=== PATIENT | male | born 1950 | race Caucasian/White ===

== ENCOUNTER 2017-03-29 15:49 | Inpatient (IN) | payer MEDICARE, OTHER ==
[~2017-03-29] VITALS: Ht 182.9 cm; Wt 71.9 kg
[~2017-03-29 15:49] MED LIST: ASPI-515 PO; IBUP200T64 PO; LANS15CA60 PO; MULT-115 PO
[2017-03-29] MEDS ORDERED: SODIUM CHLORIDE FLUSH 10ML SYR IVF ONE (16:00)
[2017-03-29] MEDS ORDERED: SODIUM CHLORIDE 0.9% 1,000ML IVBOLUS ONE (16:00)
[2017-03-29] MEDS ORDERED: PLEASE ENTER HEIGHT AND WEIGHT MC SCH (16:00)
[2017-03-29] MEDS ORDERED: MAGNESIUM SULFATE 2 GM, THIAMINE 100 MG, FOLIC ACID 1 MG, MVI ADULT 10 ML in SODIUM CHL... IV ONE (16:00)
[2017-03-29 16:17] LABS: MEAN CORPUSCULAR HEMOGLOBIN 37.7 pg (27.5-34.5); MEAN CORPUSCULAR HGB CONC 33.7 g/dL (33.2-36.2); MEAN CORPUSCULAR VOLUME 111.9 fL (81-97); MEAN PLATELET VOLUME 8.3 fL (7.4-10.4); PLATELET COUNT 161 x10^3/uL (130-400); RED CELL DISTRIBUTION WIDTH 15.7 % (9.4-14.8)
[2017-03-29 16:22] LABS: INTERNATIONAL NORMALIZED RATIO 1.01 (0.93-1.1); PROTHROMBIN TIME 10.4 Seconds (9.6-11.5)
[2017-03-29 16:27] LABS: ALANINE AMINOTRANSFERASE 87 U/L (12-78); ALBUMIN 3.7 g/dL (3.4-5.0); ANION GAP 14 mmol/L (5-15); CALCIUM 8.2 mg/dL (8.5-10.1); CHLORIDE 104 mmol/L (98-107); CREATININE 0.94 mg/dL (0.7-1.3)
[2017-03-29 16:28] LABS: ALKALINE PHOSPHATASE 116 U/L (45-117); TOTAL PROTEIN 6.7 g/dL (6.4-8.2)
[2017-03-29] MEDS ORDERED: LORazepam 2 MG/ML, 1ML ONE (16:28)
[2017-03-29] MEDS: LORazepam 2 MG/ML, 1ML IVPush PRN ×2 (16:33→20:19)
[2017-03-29 16:36] LABS: TROPONIN I 0.043 ng/mL (0.000-0.045)
[2017-03-29 16:39] LABS: BASOPHILS # (AUTO) 0.01 x10^3/uL (0-0.1); BASOPHILS % (AUTO) 0 % (0-1); EOSINOPHILS # (AUTO) 0.03 x10^3/uL (0-0.4); EOSINOPHILS % (AUTO) 1 % (1-7); LYMPHOCYTES # (AUTO) 2.02 x10^3/uL (1-3.4); LYMPHOCYTES % (AUTO) 37 % (22-44); MD MORPH REVIEW ONLY; MONOCYTES # (AUTO) 0.34 x10^3/uL (0.2-0.8); MONOCYTES % (AUTO) 6 % (2-9); NEUTROPHILS # (AUTO) 3.11 x10^3/uL (1.8-6.8); NEUTROPHILS % (AUTO) 56 % (42-75)
[2017-03-29 16:40] LABS: <PLATELET ESTIMATE> ADEQUATE; <PLT MORPHOLOGY> NORMAL PLT MORPH
[2017-03-29 16:45] LABS: ACETONE, SERUM Negative (Negative)
[2017-03-29] MEDS ORDERED: DOCUSATE 100 MG CAPSULE PO PRN (18:30)
[2017-03-29] MEDS ORDERED: ONDANSETRON ODT 4 MG PO PRN (18:30)
[2017-03-29] MEDS ORDERED: ALUMINUM/MAG/SIMETHICONE 30 ML UDC PO PRN (18:30)
[2017-03-29] MEDS ORDERED: MAGNESIUM SULFATE PMX 2GM/50ML 50 ML IV ONE (19:00)
[2017-03-29] MEDS ORDERED: ENOXAPARIN 40 MG/0.4 ML ONE (19:30)
[2017-03-29 20:21] VITALS: BP 122/75
[2017-03-29 20:30] VITALS: BP 122/75
[2017-03-29] MEDS: SODIUM CHLORIDE 0.9% 1,000 ML IV SCH (21:13)
[2017-03-29] MEDS: ENOXAPARIN 40 MG/0.4 ML SQ SCH (21:19)
[2017-03-29 21:35] LABS: TROPONIN I 0.267 ng/mL (0.000-0.045)
[2017-03-30] MEDS: LORazepam 2 MG/ML, 1ML IVPush PRN (01:12)
[2017-03-30 01:13] VITALS: BP 125/78
[2017-03-30 05:44] LABS: CHLORIDE 108 mmol/L (98-107)
[2017-03-30 06:13] LABS: MEAN CORPUSCULAR HEMOGLOBIN 38.4 pg (27.5-34.5); MEAN CORPUSCULAR HGB CONC 34.4 g/dL (33.2-36.2); MEAN CORPUSCULAR VOLUME 111.7 fL (81-97); MEAN PLATELET VOLUME 8.7 fL (7.4-10.4); PLATELET COUNT 110 x10^3/uL (130-400); RED BLOOD COUNT 2.58 x10^6/uL (4.38-5.82); RED CELL DISTRIBUTION WIDTH 16.3 % (9.4-14.8)
[2017-03-30 06:21] LABS: ANION GAP 9 mmol/L (5-15); CREATININE 0.63 mg/dL (0.7-1.3); FREE T4 (FREE THYROXINE) 1.78 ng/dL (0.76-1.46); TROPONIN I 0.073 ng/mL (0.000-0.045)
[2017-03-30 07:04] LABS: BASOPHILS # (AUTO) 0.02 x10^3/uL (0-0.1); BASOPHILS % (AUTO) 1 % (0-1); EOSINOPHILS # (AUTO) 0.03 x10^3/uL (0-0.4); EOSINOPHILS % (AUTO) 1 % (1-7); LYMPHOCYTES # (AUTO) 0.98 x10^3/uL (1-3.4); LYMPHOCYTES % (AUTO) 38 % (22-44); MD MORPH REVIEW ONLY; MONOCYTES # (AUTO) 0.33 x10^3/uL (0.2-0.8); MONOCYTES % (AUTO) 13 % (2-9); NEUTROPHILS # (AUTO) 1.21 x10^3/uL (1.8-6.8); NEUTROPHILS % (AUTO) 47 % (42-75)
[2017-03-30 07:05] VITALS: BP 151/84
[2017-03-30 07:07] LABS: <PLATELET ESTIMATE> ADEQUATE; ANISOCYTOSIS 1+
[2017-03-30 07:08] LABS: <PLT MORPHOLOGY> NORMAL PLT MORPH
[2017-03-30] MEDS ORDERED: THIAMINE 100MG TABLET PO ONE (09:00)
[2017-03-30] MEDS: SODIUM CHLORIDE 0.9% 1,000 ML IV SCH ×2 (09:00→17:31)
[2017-03-30] MEDS: MULTIVITAMIN 1 TABLET PO SCH (09:24)
[2017-03-30] MEDS: FOLIC ACID 1 MG TABLET PO SCH (09:24)
[2017-03-30] MEDS: ASPIRIN 81 MG TABLET EC PO SCH (09:24)
[2017-03-30] MEDS: PANTOPROZOLE 40MG TABLET PO SCH (09:24)
[2017-03-30] MEDS: POTASSIUM CHLORIDE 20 MEQ TAB.ER.PRT PO SCH ×2 (09:25→17:32)
[2017-03-30 10:56] LABS: FOLATE LEVEL > 20.0 ng/mL (3.1-17.5)
[2017-03-30 12:20] VITALS: BP 151/83
[2017-03-30] MEDS ORDERED: OMNIPAQUE 350 MG/ML, 100ML BOTTLE ONE (15:04)
[2017-03-30] MEDS: ENOXAPARIN 40 MG/0.4 ML SQ SCH (17:32)
[2017-03-30 20:00] VITALS: BP 150/85
[2017-03-31 00:47] LABS: OCCULT BLOOD NEGATIVE (NEGATIVE)
[2017-03-31] MEDS: SODIUM CHLORIDE 0.9% 1,000 ML IV SCH ×3 (01:00→20:55)
[2017-03-31 03:23] VITALS: BP 160/93
[2017-03-31 04:58] LABS: MEAN CORPUSCULAR HGB CONC 34.8 g/dL (33.2-36.2); MEAN PLATELET VOLUME 8.6 fL (7.4-10.4); PLATELET COUNT 112 x10^3/uL (130-400); RED BLOOD COUNT 2.58 x10^6/uL (4.38-5.82); RED CELL DISTRIBUTION WIDTH 15.7 % (9.4-14.8)
[2017-03-31 05:08] LABS: CHLORIDE 109 mmol/L (98-107)
[2017-03-31 05:12] LABS: ALANINE AMINOTRANSFERASE 68 U/L (12-78); ALBUMIN 3.2 g/dL (3.4-5.0); ALKALINE PHOSPHATASE 102 U/L (45-117); ANION GAP 8 mmol/L (5-15); BILIRUBIN,TOTAL 1.6 mg/dL (0.2-1.0); CREATININE 0.59 mg/dL (0.7-1.3); TOTAL PROTEIN 5.9 g/dL (6.4-8.2)
[2017-03-31 06:28] LABS: MD YES
[2017-03-31 06:33] LABS: BAND#(MANUAL) 0.18 x10^3/uL; BANDS%(MANUAL) 4 % (0-7); LYMPH#(MANUAL) 1.04 x10^3/uL (1-3.4); LYMPHS% (MANUAL) 23 % (22-44); MONOS#(MANUAL) 0.09 x10^3/uL (0.3-2.7); MONOS% (MANUAL) 2 % (2-9); SEGS% (MANUAL) 71 % (42-75)
[2017-03-31 06:34] LABS: ANISOCYTOSIS 1+; HYPOCHROMIA 1+
[2017-03-31 06:35] LABS: <PLATELET ESTIMATE> DECREASED; <PLT MORPHOLOGY> NORMAL PLT MORPH
[2017-03-31 06:42] VITALS: BP 151/86
[2017-03-31] MEDS: LORazepam 2 MG/ML, 1ML IVPush PRN ×3 (08:25→19:42)
[2017-03-31] MEDS ORDERED: MAGNESIUM SULFATE PMX 4GM/100M 100 ML IV ONE (09:30)
[2017-03-31] MEDS: THIAMINE 100MG TABLET PO SCH (11:15)
[2017-03-31] MEDS: MULTIVITAMIN 1 TABLET PO SCH (11:15)
[2017-03-31] MEDS: NEUTRA PHOS K 250 MG TABLET PO SCH ×3 (11:15→20:55)
[2017-03-31] MEDS: PANTOPROZOLE 40MG TABLET PO SCH (11:15)
[2017-03-31] MEDS: ASPIRIN 81 MG TABLET EC PO SCH (11:15)
[2017-03-31] MEDS: FOLIC ACID 1 MG TABLET PO SCH (11:15)
[2017-03-31 12:03] VITALS: BP 138/85
[2017-03-31] MEDS: ENOXAPARIN 40 MG/0.4 ML SQ SCH (17:27)
[2017-03-31 19:40] VITALS: BP 150/92
[2017-04-01] MEDS: LORazepam 2 MG/ML, 1ML IVPush PRN ×6 (01:25→20:40)
[2017-04-01 02:37] VITALS: BP 147/91
[2017-04-01] MEDS: SODIUM CHLORIDE 0.9% 1,000 ML IV SCH ×3 (05:21→20:40)
[2017-04-01 07:17] LABS: MEAN CORPUSCULAR HEMOGLOBIN 37.8 pg (27.5-34.5); MEAN CORPUSCULAR HGB CONC 33.3 g/dL (33.2-36.2); MEAN CORPUSCULAR VOLUME 113.6 fL (81-97); MEAN PLATELET VOLUME 8.1 fL (7.4-10.4); PLATELET COUNT 109 x10^3/uL (130-400); RED BLOOD COUNT 2.58 x10^6/uL (4.38-5.82)
[2017-04-01 07:30] LABS: RED CELL DISTRIBUTION WIDTH 16.2 % (9.4-14.8)
[2017-04-01 07:31] LABS: BASOPHILS # (AUTO) 0.02 x10^3/uL (0-0.1); BASOPHILS % (AUTO) 0 % (0-1); EOSINOPHILS % (AUTO) 0 % (1-7); LYMPHOCYTES # (AUTO) 0.62 x10^3/uL (1-3.4); LYMPHOCYTES % (AUTO) 9 % (22-44); MD SCAN; MONOCYTES # (AUTO) 0.87 x10^3/uL (0.2-0.8); MONOCYTES % (AUTO) 13 % (2-9); NEUTROPHILS % (AUTO) 77 % (42-75)
[2017-04-01 07:40] LABS: ANION GAP 12 mmol/L (5-15); CHLORIDE 109 mmol/L (98-107); CREATININE 0.55 mg/dL (0.7-1.3)
[2017-04-01 08:09] VITALS: BP 142/91
[2017-04-01] MEDS: THIAMINE 100MG TABLET PO SCH (09:00)
[2017-04-01] MEDS: ASPIRIN 81 MG TABLET EC PO SCH (09:00)
[2017-04-01] MEDS: MULTIVITAMIN 1 TABLET PO SCH (09:00)
[2017-04-01] MEDS: FOLIC ACID 1 MG TABLET PO SCH (09:00)
[2017-04-01] MEDS: PANTOPROZOLE 40MG TABLET PO SCH (09:00)
[2017-04-01] MEDS: NICOTINE 21 MG/24 HR PATCH.TD24 TD SCH (12:05)
[2017-04-01 13:35] VITALS: BP 157/94
[2017-04-01] MEDS: ENOXAPARIN 40 MG/0.4 ML SQ SCH (17:10)
[2017-04-01 18:31] VITALS: BP 160/95
[2017-04-02] MEDS: LORazepam 2 MG/ML, 1ML IVPush PRN ×4 (00:35→09:36)
[2017-04-02 03:25] VITALS: BP 148/81
[2017-04-02] MEDS: SODIUM CHLORIDE 0.9% 1,000 ML IV SCH (04:35)
[2017-04-02 05:21] LABS: MEAN CORPUSCULAR HEMOGLOBIN 38.1 pg (27.5-34.5); MEAN CORPUSCULAR HGB CONC 33.4 g/dL (33.2-36.2); MEAN PLATELET VOLUME 8.4 fL (7.4-10.4); PLATELET COUNT 117 x10^3/uL (130-400); RED BLOOD COUNT 2.67 x10^6/uL (4.38-5.82); RED CELL DISTRIBUTION WIDTH 16.6 % (9.4-14.8)
[2017-04-02 05:35] LABS: ALBUMIN 2.8 g/dL (3.4-5.0); ANION GAP 12 mmol/L (5-15); CALCIUM 8.5 mg/dL (8.5-10.1); CHLORIDE 110 mmol/L (98-107)
[2017-04-02 05:38] LABS: ALANINE AMINOTRANSFERASE 43 U/L (12-78); ALKALINE PHOSPHATASE 83 U/L (45-117); BILIRUBIN,TOTAL 2.2 mg/dL (0.2-1.0); CREATININE 0.59 mg/dL (0.7-1.3); TOTAL PROTEIN 6.3 g/dL (6.4-8.2)
[2017-04-02 07:02] LABS: BASOPHILS # (AUTO) 0.01 x10^3/uL (0-0.1); BASOPHILS % (AUTO) 0 % (0-1); EOSINOPHILS # (AUTO) 0.01 x10^3/uL (0-0.4); EOSINOPHILS % (AUTO) 0 % (1-7); LYMPHOCYTES # (AUTO) 0.48 x10^3/uL (1-3.4); LYMPHOCYTES % (AUTO) 7 % (22-44); MD SCAN; MONOCYTES # (AUTO) 1.03 x10^3/uL (0.2-0.8); MONOCYTES % (AUTO) 14 % (2-9); NEUTROPHILS # (AUTO) 5.73 x10^3/uL (1.8-6.8); NEUTROPHILS % (AUTO) 79 % (42-75)
[2017-04-02 07:55] VITALS: BP 169/94
[2017-04-02] MEDS ORDERED: SODIUM PHOSPHATE 10 MMOL in SODIUM CHLORIDE 0.9% 500 ML IV ONE (08:00)
[2017-04-02] MEDS ORDERED: D5%-0.9% NACL 1,000 ML IV SCH (08:00)
[2017-04-02] MEDS: FOLIC ACID 1 MG TABLET PO SCH (09:00)
[2017-04-02] MEDS: ASPIRIN 81 MG TABLET EC PO SCH (09:00)
[2017-04-02] MEDS: MULTIVITAMIN 1 TABLET PO SCH (09:00)
[2017-04-02] MEDS: PANTOPROZOLE 40MG TABLET PO SCH (09:00)
[2017-04-02] MEDS: THIAMINE 100MG TABLET PO SCH (09:00)
[2017-04-02] MEDS: NICOTINE 21 MG/24 HR PATCH.TD24 TD SCH (09:37)
[2017-04-02] MEDS ORDERED: FUROSEMIDE 40 MG/4 ML IV ONE ×3 (10:00→22:30)
[2017-04-02] MEDS: LORazepam 2 MG/ML, 1ML IV PRN ×3 (12:18→20:15)
[2017-04-02] MEDS ORDERED: LORazepam 1MG TABLET PO PRN ×4 (12:30)
[2017-04-02] MEDS ORDERED: LORazepam 2 MG/ML, 1ML IV PRN ×3 (12:30)
[2017-04-02] MEDS ORDERED: LORazepam 0.5MG TABLET PO PRN (12:30)
[2017-04-02 14:15] VITALS: BP 149/88
[2017-04-02] MEDS: ENOXAPARIN 40 MG/0.4 ML SQ SCH (17:44)
[2017-04-02] MEDS: ATORVASTATIN 20 MG TABLET PO SCH (20:10)
[2017-04-02 20:29] VITALS: BP 138/76
[2017-04-02] MEDS ORDERED: FUROSEMIDE 40 MG/4 ML ONE (22:29)
[2017-04-02 23:12] LABS: ALANINE AMINOTRANSFERASE 39 U/L (12-78); ALBUMIN 2.7 g/dL (3.4-5.0); ANION GAP 14 mmol/L (5-15); CALCIUM 8.6 mg/dL (8.5-10.1); CHLORIDE 107 mmol/L (98-107); CREATININE 0.54 mg/dL (0.7-1.3)
[2017-04-02 23:14] LABS: ALKALINE PHOSPHATASE 75 U/L (45-117); BILIRUBIN,TOTAL 1.7 mg/dL (0.2-1.0); TOTAL PROTEIN 6.4 g/dL (6.4-8.2)
[2017-04-02 23:43] LABS: MEAN CORPUSCULAR HGB CONC 33.4 g/dL (33.2-36.2); MEAN CORPUSCULAR VOLUME 113.7 fL (81-97); MEAN PLATELET VOLUME 8.9 fL (7.4-10.4); PLATELET COUNT 162 x10^3/uL (130-400); RED BLOOD COUNT 2.87 x10^6/uL (4.38-5.82); RED CELL DISTRIBUTION WIDTH 16.6 % (9.4-14.8)
[2017-04-02 23:58] LABS: BASOPHILS # (AUTO) 0.01 x10^3/uL (0-0.1); BASOPHILS % (AUTO) 0 % (0-1); EOSINOPHILS % (AUTO) 0 % (1-7); LYMPHOCYTES % (AUTO) 6 % (22-44); MD SCAN; MONOCYTES # (AUTO) 1.27 x10^3/uL (0.2-0.8); MONOCYTES % (AUTO) 16 % (2-9); NEUTROPHILS % (AUTO) 78 % (42-75)
[2017-04-03] MEDS ORDERED: LIDOCAINE-MPF 1%, 2ML ENDO PRN
[2017-04-03] MEDS ORDERED: PHARMACY MAY ADJ FOR RENAL FX MC SCH
[2017-04-03] MEDS ORDERED: ETOMIDATE 20 MG/10 ML IVPush ONE
[2017-04-03] MEDS ORDERED: MIDAZOLAM 1 MG/ML, 5ML IVPush ONE
[2017-04-03] MEDS: AMPICILLIN/SULBACTAM 3 GM in SODIUM CHLORIDE 0.9% 100 ML IV SCH ×5 (00:11→23:47)
[2017-04-03] MEDS: PROPOFOL 100 ML IV PRN ×2 (00:12→04:01)
[2017-04-03] MEDS ORDERED: SODIUM CHLORIDE 0.9% 1,000ML IVBOLUS ONE ×2 (00:30→09:30)
[2017-04-03] MEDS: LORazepam 2 MG/ML, 1ML IV PRN (03:50)
[2017-04-03 04:00] VITALS: BP 110/70
[2017-04-03 04:51] LABS: MEAN CORPUSCULAR HEMOGLOBIN 38.4 pg (27.5-34.5); MEAN CORPUSCULAR HGB CONC 33.9 g/dL (33.2-36.2); MEAN CORPUSCULAR VOLUME 113.2 fL (81-97); MEAN PLATELET VOLUME 8.6 fL (7.4-10.4); PLATELET COUNT 138 x10^3/uL (130-400); RED BLOOD COUNT 2.63 x10^6/uL (4.38-5.82); RED CELL DISTRIBUTION WIDTH 15.8 % (9.4-14.8)
[2017-04-03 04:57] LABS: ALANINE AMINOTRANSFERASE 35 U/L (12-78); ALBUMIN 2.3 g/dL (3.4-5.0); ANION GAP 11 mmol/L (5-15); CALCIUM 8.3 mg/dL (8.5-10.1); CHLORIDE 110 mmol/L (98-107); CREATININE 0.55 mg/dL (0.7-1.3)
[2017-04-03 05:03] LABS: ALKALINE PHOSPHATASE 65 U/L (45-117); BILIRUBIN,TOTAL 1.7 mg/dL (0.2-1.0); CHOL/HDL RATIO 5.1; CHOLESTEROL, TOTAL 112 mg/dL (140-239); HDL CHOL % 20 % (26-37); HDL CHOLESTEROL (DIRECT) 22 mg/dL (40-60); LDL CHOLESTEROL,CALCULATED 58 mg/dL (54-169); LDL/HDL RATIO 2.6 (0.5-3.0); TOTAL PROTEIN 5.6 g/dL (6.4-8.2); TRIGLYCERIDES 158 mg/dL (50-200); VLDL CHOLESTEROL 32 mg/dL (0-25)
[2017-04-03] MEDS ORDERED: ALBUTEROL/IPRATROPIUM 2.5MG/0.5MG, 3 ML NPPB PRN (05:30)
[2017-04-03] MEDS: ACETAMINOPHEN 650 MG/20.3 ML UDC NG PRN ×2 (05:40→16:56)
[2017-04-03] MEDS: MIDAZOLAM HCL 25 MG in SODIUM CHLORIDE 0.9% 245 ML IV PRN ×5 (05:41→23:47)
[2017-04-03 05:44] LABS: BASOPHILS # (AUTO) 0.01 x10^3/uL (0-0.1); BASOPHILS % (AUTO) 0 % (0-1); EOSINOPHILS % (AUTO) 0 % (1-7); LYMPHOCYTES % (AUTO) 10 % (22-44); MD SCAN; MONOCYTES # (AUTO) 0.65 x10^3/uL (0.2-0.8); MONOCYTES % (AUTO) 16 % (2-9); NEUTROPHILS # (AUTO) 3.03 x10^3/uL (1.8-6.8); NEUTROPHILS % (AUTO) 74 % (42-75)
[2017-04-03] MEDS ORDERED: MAGNESIUM SULFATE PMX 4GM/100M 100 ML IV ONE (08:00)
[2017-04-03] MEDS: ALBUTEROL/IPRATROPIUM 2.5MG/0.5MG, 3 ML NPPB SCH ×5 (08:03→22:35)
[2017-04-03] MEDS: THIAMINE 100MG TABLET PO SCH (09:00)
[2017-04-03] MEDS: ASPIRIN 81 MG TABLET EC PO SCH (09:00)
[2017-04-03] MEDS: FOLIC ACID 1 MG TABLET PO SCH (09:00)
[2017-04-03] MEDS: MULTIVITAMIN 1 TABLET PO SCH (09:00)
[2017-04-03] MEDS: PANTOPROZOLE 40MG TABLET PO SCH (09:00)
[2017-04-03] MEDS: NICOTINE 21 MG/24 HR PATCH.TD24 TD SCH (10:09)
[2017-04-03] MEDS: DIAZEPAM 5 MG/ML, 10ML VIAL IV SCH ×3 (10:09→20:32)
[2017-04-03] MEDS ORDERED: ETOMIDATE 20 MG/10 ML ONE (11:52)
[2017-04-03] MEDS ORDERED: PROPOFOL 10 MG/ML, 100ML IV ONE (11:52)
[2017-04-03] MEDS ORDERED: MIDAZOLAM 1 MG/ML, 5ML ONE (11:52)
[2017-04-03] MEDS ORDERED: SODIUM CHLORIDE 0.9%, 500ML IVBOLUS ONE (13:00)
[2017-04-03] MEDS ORDERED: NOREPINEPHRINE 4 MG in SODIUM CHLORIDE 0.9% 246 ML IV PRN (13:00)
[2017-04-03] MEDS: ENOXAPARIN 40 MG/0.4 ML SQ SCH (17:38)
[2017-04-03] MEDS: ATORVASTATIN 20 MG TABLET PO SCH (20:32)
[2017-04-04] MEDS: DIAZEPAM 5 MG/ML, 10ML VIAL IV SCH ×4 (02:56→22:29)
[2017-04-04] MEDS: MIDAZOLAM HCL 25 MG in SODIUM CHLORIDE 0.9% 245 ML IV PRN ×2 (02:56→05:59)
[2017-04-04] MEDS: ALBUTEROL/IPRATROPIUM 2.5MG/0.5MG, 3 ML NPPB SCH ×6 (03:13→22:35)
[2017-04-04] MEDS: ACETAMINOPHEN 650 MG/20.3 ML UDC NG PRN (03:43)
[2017-04-04 04:00] VITALS: BP 102/62
[2017-04-04 04:38] LABS: MEAN CORPUSCULAR HGB CONC 33.6 g/dL (33.2-36.2); MEAN CORPUSCULAR VOLUME 113.1 fL (81-97); MEAN PLATELET VOLUME 8.8 fL (7.4-10.4); PLATELET COUNT 146 x10^3/uL (130-400); RED BLOOD COUNT 2.51 x10^6/uL (4.38-5.82)
[2017-04-04 04:42] LABS: BASOPHILS # (AUTO) 0.01 x10^3/uL (0-0.1); BASOPHILS % (AUTO) 0 % (0-1); EOSINOPHILS # (AUTO) 0.09 x10^3/uL (0-0.4); EOSINOPHILS % (AUTO) 2 % (1-7); LYMPHOCYTES # (AUTO) 0.56 x10^3/uL (1-3.4); LYMPHOCYTES % (AUTO) 13 % (22-44); MD NO; MONOCYTES # (AUTO) 0.61 x10^3/uL (0.2-0.8); MONOCYTES % (AUTO) 14 % (2-9); NEUTROPHILS # (AUTO) 3.14 x10^3/uL (1.8-6.8); NEUTROPHILS % (AUTO) 71 % (42-75)
[2017-04-04] MEDS: AMPICILLIN/SULBACTAM 3 GM in SODIUM CHLORIDE 0.9% 100 ML IV SCH ×3 (05:59→17:29)
[2017-04-04 06:38] LABS: ALANINE AMINOTRANSFERASE 29 U/L (12-78); ALBUMIN 1.9 g/dL (3.4-5.0); ANION GAP 7 mmol/L (5-15); CALCIUM 7.9 mg/dL (8.5-10.1); CHLORIDE 114 mmol/L (98-107); CREATININE 0.62 mg/dL (0.7-1.3)
[2017-04-04 06:39] LABS: ALKALINE PHOSPHATASE 63 U/L (45-117); BILIRUBIN,TOTAL 1.1 mg/dL (0.2-1.0); TOTAL PROTEIN 5.2 g/dL (6.4-8.2)
[2017-04-04] MEDS ORDERED: POTASSIUM PHOSPHATE 44 MEQ in SODIUM CHLORIDE 0.9% 500 ML IV ONE (08:00)
[2017-04-04] MEDS: POTASSIUM CHLORIDE 10% 40 MEQ/30 ML UDC PO SCH ×2 (09:38→22:29)
[2017-04-04] MEDS: THIAMINE 100MG TABLET PO SCH (09:38)
[2017-04-04] MEDS: ASPIRIN 81 MG TABLET EC PO SCH (09:39)
[2017-04-04] MEDS: NICOTINE 21 MG/24 HR PATCH.TD24 TD SCH (09:39)
[2017-04-04] MEDS: MULTIVITAMIN 1 TABLET PO SCH (09:39)
[2017-04-04] MEDS: FOLIC ACID 1 MG TABLET PO SCH (09:39)
[2017-04-04] MEDS: PANTOPROZOLE 40MG TABLET PO SCH (09:39)
[2017-04-04] MEDS: ENOXAPARIN 40 MG/0.4 ML SQ SCH (17:29)
[2017-04-04] MEDS: ATORVASTATIN 20 MG TABLET PO SCH (22:29)
[2017-04-05] MEDS: AMPICILLIN/SULBACTAM 3 GM in SODIUM CHLORIDE 0.9% 100 ML IV SCH ×4 (00:57→17:55)
[2017-04-05] MEDS: ALBUTEROL/IPRATROPIUM 2.5MG/0.5MG, 3 ML NPPB SCH ×6 (02:30→23:00)
[2017-04-05 04:42] LABS: MEAN CORPUSCULAR HGB CONC 33.7 g/dL (33.2-36.2); MEAN CORPUSCULAR VOLUME 112.7 fL (81-97); MEAN PLATELET VOLUME 8.9 fL (7.4-10.4); PLATELET COUNT 193 x10^3/uL (130-400); RED BLOOD COUNT 2.39 x10^6/uL (4.38-5.82); RED CELL DISTRIBUTION WIDTH 16.6 % (9.4-14.8)
[2017-04-05 04:55] LABS: BASOPHILS # (AUTO) 0.01 x10^3/uL (0-0.1); BASOPHILS % (AUTO) 0 % (0-1); EOSINOPHILS # (AUTO) 0.11 x10^3/uL (0-0.4); EOSINOPHILS % (AUTO) 3 % (1-7); LYMPHOCYTES # (AUTO) 0.58 x10^3/uL (1-3.4); LYMPHOCYTES % (AUTO) 13 % (22-44); MD SCAN; MONOCYTES # (AUTO) 0.52 x10^3/uL (0.2-0.8); MONOCYTES % (AUTO) 12 % (2-9); NEUTROPHILS # (AUTO) 3.24 x10^3/uL (1.8-6.8); NEUTROPHILS % (AUTO) 73 % (42-75)
[2017-04-05] MEDS: DIAZEPAM 5 MG/ML, 10ML VIAL IV SCH ×4 (04:55→23:37)
[2017-04-05 07:02] LABS: ALANINE AMINOTRANSFERASE 32 U/L (12-78); ALBUMIN 1.9 g/dL (3.4-5.0); ANION GAP 7 mmol/L (5-15); CALCIUM 7.9 mg/dL (8.5-10.1); CHLORIDE 117 mmol/L (98-107); CREATININE 0.57 mg/dL (0.7-1.3)
[2017-04-05 07:04] LABS: ALKALINE PHOSPHATASE 81 U/L (45-117); BILIRUBIN,TOTAL 0.7 mg/dL (0.2-1.0); TOTAL PROTEIN 5.2 g/dL (6.4-8.2)
[2017-04-05] MEDS: NICOTINE 21 MG/24 HR PATCH.TD24 TD SCH (08:17)
[2017-04-05] MEDS: THIAMINE 100MG TABLET PO SCH (08:17)
[2017-04-05] MEDS: ASPIRIN 81 MG TABLET EC PO SCH (08:17)
[2017-04-05] MEDS: FOLIC ACID 1 MG TABLET PO SCH (08:17)
[2017-04-05] MEDS: MULTIVITAMIN 1 TABLET PO SCH (08:17)
[2017-04-05] MEDS ORDERED: MAGNESIUM SULFATE PMX 2GM/50ML 50 ML IV ONE (10:00)
[2017-04-05] MEDS: PANTOPRAZOLE 40 MG IV IV SCH (10:09)
[2017-04-05] MEDS: MIDAZOLAM HCL 25 MG in SODIUM CHLORIDE 0.9% 245 ML IV PRN ×2 (15:18→18:19)
[2017-04-05] MEDS ORDERED: FENTANYL PF 100 MCG/2ML ONE (17:33)
[2017-04-05] MEDS: FENTANYL PF 100 MCG/2ML IVPush PRN ×2 (17:36→21:28)
[2017-04-05] MEDS: ENOXAPARIN 40 MG/0.4 ML SQ SCH (17:56)
[2017-04-05] MEDS: MIDAZOLAM HCL 50 MG in SODIUM CHLORIDE 0.9% 240 ML IV PRN (20:38)
[2017-04-05] MEDS: ATORVASTATIN 20 MG TABLET PO SCH (21:28)
[2017-04-06] MEDS: AMPICILLIN/SULBACTAM 3 GM in SODIUM CHLORIDE 0.9% 100 ML IV SCH ×4 (00:32→17:47)
[2017-04-06] MEDS: ALBUTEROL/IPRATROPIUM 2.5MG/0.5MG, 3 ML NPPB SCH ×7 (03:00→23:00)
[2017-04-06] MEDS: FENTANYL PF 100 MCG/2ML IVPush PRN ×5 (04:07→23:25)
[2017-04-06] MEDS: DIAZEPAM 5 MG/ML, 10ML VIAL IV SCH ×4 (04:09→21:58)
[2017-04-06] MEDS: MIDAZOLAM HCL 50 MG in SODIUM CHLORIDE 0.9% 240 ML IV PRN ×3 (04:10→23:23)
[2017-04-06 04:29] LABS: MEAN CORPUSCULAR HEMOGLOBIN 37.7 pg (27.5-34.5); MEAN CORPUSCULAR HGB CONC 33.6 g/dL (33.2-36.2); MEAN CORPUSCULAR VOLUME 112.2 fL (81-97); MEAN PLATELET VOLUME 8.4 fL (7.4-10.4); PLATELET COUNT 228 x10^3/uL (130-400); RED BLOOD COUNT 2.36 x10^6/uL (4.38-5.82); RED CELL DISTRIBUTION WIDTH 16.2 % (9.4-14.8)
[2017-04-06 04:49] LABS: ALBUMIN 1.9 g/dL (3.4-5.0); ANION GAP 5 mmol/L (5-15); CHLORIDE 112 mmol/L (98-107)
[2017-04-06 04:53] LABS: ALANINE AMINOTRANSFERASE 41 U/L (12-78); ALKALINE PHOSPHATASE 95 U/L (45-117); BILIRUBIN,TOTAL 0.8 mg/dL (0.2-1.0); CREATININE 0.51 mg/dL (0.7-1.3); TOTAL PROTEIN 5.3 g/dL (6.4-8.2)
[2017-04-06 05:31] VITALS: BP 105/59
[2017-04-06 06:19] LABS: BASOPHILS # (AUTO) 0.02 x10^3/uL (0-0.1); BASOPHILS % (AUTO) 1 % (0-1); EOSINOPHILS # (AUTO) 0.15 x10^3/uL (0-0.4); EOSINOPHILS % (AUTO) 3 % (1-7); LYMPHOCYTES # (AUTO) 0.69 x10^3/uL (1-3.4); LYMPHOCYTES % (AUTO) 14 % (22-44); MD SCAN; MONOCYTES # (AUTO) 0.62 x10^3/uL (0.2-0.8); MONOCYTES % (AUTO) 12 % (2-9); NEUTROPHILS # (AUTO) 3.52 x10^3/uL (1.8-6.8); NEUTROPHILS % (AUTO) 70 % (42-75)
[2017-04-06] MEDS: FOLIC ACID 1 MG TABLET PO SCH (08:08)
[2017-04-06] MEDS: ASPIRIN 81 MG TABLET EC PO SCH (08:08)
[2017-04-06] MEDS: MULTIVITAMIN 1 TABLET PO SCH (08:08)
[2017-04-06] MEDS: THIAMINE 100MG TABLET PO SCH (08:08)
[2017-04-06] MEDS: PANTOPRAZOLE 40 MG IV IV SCH (08:08)
[2017-04-06] MEDS: NICOTINE 21 MG/24 HR PATCH.TD24 TD SCH (08:08)
[2017-04-06] MEDS ORDERED: PROPRANOLOL 20 MG TABLET PO SCH (09:00)
[2017-04-06] MEDS ORDERED: PROPRANOLOL 10 MG TABLET PO SCH (09:04)
[2017-04-06] MEDS: POTASSIUM CHLORIDE 20 MEQ PACKET NG SCH ×2 (09:55→20:08)
[2017-04-06] MEDS: FUROSEMIDE 40 MG/4 ML IV SCH ×2 (09:55→20:09)
[2017-04-06] MEDS: PROPRANOLOL 10 MG TABLET PO SCH ×3 (10:03→20:09)
[2017-04-06 11:44] LABS: O2 FLOW 50 L/min
[2017-04-06] MEDS: ENOXAPARIN 40 MG/0.4 ML SQ SCH (18:01)
[2017-04-06] MEDS: ATORVASTATIN 20 MG TABLET PO SCH (20:08)
[2017-04-07] MEDS: AMPICILLIN/SULBACTAM 3 GM in SODIUM CHLORIDE 0.9% 100 ML IV SCH ×5 (00:24→23:50)
[2017-04-07] MEDS: FENTANYL PF 100 MCG/2ML IVPush PRN ×3 (02:30→15:41)
[2017-04-07] MEDS: ALBUTEROL/IPRATROPIUM 2.5MG/0.5MG, 3 ML NPPB SCH ×6 (03:00→22:30)
[2017-04-07 04:31] LABS: MEAN CORPUSCULAR HEMOGLOBIN 37.6 pg (27.5-34.5); MEAN CORPUSCULAR HGB CONC 33.9 g/dL (33.2-36.2); MEAN CORPUSCULAR VOLUME 110.9 fL (81-97); MEAN PLATELET VOLUME 8.6 fL (7.4-10.4); PLATELET COUNT 245 x10^3/uL (130-400); RED BLOOD COUNT 2.48 x10^6/uL (4.38-5.82); RED CELL DISTRIBUTION WIDTH 16.2 % (9.4-14.8)
[2017-04-07 04:33] VITALS: BP 106/57
[2017-04-07 04:39] LABS: ALBUMIN 1.9 g/dL (3.4-5.0); ANION GAP 6 mmol/L (5-15); CALCIUM 7.9 mg/dL (8.5-10.1); CHLORIDE 103 mmol/L (98-107)
[2017-04-07 04:43] LABS: ALANINE AMINOTRANSFERASE 43 U/L (12-78); ALKALINE PHOSPHATASE 100 U/L (45-117); BILIRUBIN,TOTAL 0.7 mg/dL (0.2-1.0); TOTAL PROTEIN 5.4 g/dL (6.4-8.2)
[2017-04-07] MEDS: DIAZEPAM 5 MG/ML, 10ML VIAL IV SCH ×2 (04:53→11:00)
[2017-04-07] MEDS: MIDAZOLAM HCL 50 MG in SODIUM CHLORIDE 0.9% 240 ML IV PRN ×3 (04:57→20:03)
[2017-04-07] MEDS ORDERED: MAGNESIUM SULFATE PMX 2GM/50ML 50 ML IV ONE (05:30)
[2017-04-07 05:53] LABS: BASOPHILS # (AUTO) 0.03 x10^3/uL (0-0.1); BASOPHILS % (AUTO) 0 % (0-1); EOSINOPHILS # (AUTO) 0.17 x10^3/uL (0-0.4); EOSINOPHILS % (AUTO) 3 % (1-7); LYMPHOCYTES # (AUTO) 0.65 x10^3/uL (1-3.4); LYMPHOCYTES % (AUTO) 10 % (22-44); MD SCAN; MONOCYTES # (AUTO) 0.78 x10^3/uL (0.2-0.8); MONOCYTES % (AUTO) 12 % (2-9); NEUTROPHILS # (AUTO) 5.11 x10^3/uL (1.8-6.8); NEUTROPHILS % (AUTO) 76 % (42-75)
[2017-04-07] MEDS: NICOTINE 21 MG/24 HR PATCH.TD24 TD SCH (08:32)
[2017-04-07] MEDS: FOLIC ACID 1 MG TABLET PO SCH (08:32)
[2017-04-07] MEDS: PANTOPRAZOLE 40 MG IV IV SCH (08:32)
[2017-04-07] MEDS: THIAMINE 100MG TABLET PO SCH (08:32)
[2017-04-07] MEDS: MULTIVITAMIN 1 TABLET PO SCH (08:32)
[2017-04-07] MEDS: ASPIRIN 81 MG TABLET EC PO SCH (08:32)
[2017-04-07] MEDS: PROPRANOLOL 10 MG TABLET PO SCH ×3 (08:33→21:00)
[2017-04-07] MEDS: DIAZEPAM 5 MG/ML, 10ML VIAL IV PRN (14:09)
[2017-04-07] MEDS: POTASSIUM CHLORIDE 20 MEQ PACKET PO SCH (17:13)
[2017-04-07] MEDS: FUROSEMIDE 40 MG/4 ML IV SCH (17:14)
[2017-04-07] MEDS: ENOXAPARIN 40 MG/0.4 ML SQ SCH (17:45)
[2017-04-07] MEDS: ATORVASTATIN 20 MG TABLET PO SCH (21:00)
[2017-04-08] MEDS: FENTANYL PF 100 MCG/2ML IVPush PRN ×2 (00:43→19:02)
[2017-04-08] MEDS: MIDAZOLAM HCL 50 MG in SODIUM CHLORIDE 0.9% 240 ML IV PRN ×3 (02:03→23:56)
[2017-04-08] MEDS: ALBUTEROL/IPRATROPIUM 2.5MG/0.5MG, 3 ML NPPB SCH ×6 (02:30→22:30)
[2017-04-08 04:00] VITALS: BP 106/59
[2017-04-08 04:55] LABS: MEAN CORPUSCULAR HEMOGLOBIN 37.4 pg (27.5-34.5); MEAN CORPUSCULAR HGB CONC 33.9 g/dL (33.2-36.2); MEAN CORPUSCULAR VOLUME 110.4 fL (81-97); MEAN PLATELET VOLUME 9.1 fL (7.4-10.4); PLATELET COUNT 286 x10^3/uL (130-400); RED BLOOD COUNT 2.43 x10^6/uL (4.38-5.82); RED CELL DISTRIBUTION WIDTH 16.3 % (9.4-14.8)
[2017-04-08 05:07] LABS: ALANINE AMINOTRANSFERASE 53 U/L (12-78); ALBUMIN 1.9 g/dL (3.4-5.0); ANION GAP 7 mmol/L (5-15); CALCIUM 8.1 mg/dL (8.5-10.1); CHLORIDE 102 mmol/L (98-107); TRIGLYCERIDES 153 mg/dL (50-200)
[2017-04-08 05:10] LABS: ALKALINE PHOSPHATASE 102 U/L (45-117); BILIRUBIN,TOTAL 0.8 mg/dL (0.2-1.0); TOTAL PROTEIN 5.6 g/dL (6.4-8.2)
[2017-04-08] MEDS: AMPICILLIN/SULBACTAM 3 GM in SODIUM CHLORIDE 0.9% 100 ML IV SCH ×4 (05:38→23:56)
[2017-04-08 05:39] LABS: BASOPHILS # (AUTO) 0.08 x10^3/uL (0-0.1); BASOPHILS % (AUTO) 1 % (0-1); EOSINOPHILS # (AUTO) 0.16 x10^3/uL (0-0.4); EOSINOPHILS % (AUTO) 2 % (1-7); LYMPHOCYTES % (AUTO) 12 % (22-44); MD SCAN; MONOCYTES # (AUTO) 0.81 x10^3/uL (0.2-0.8); MONOCYTES % (AUTO) 11 % (2-9); NEUTROPHILS # (AUTO) 5.46 x10^3/uL (1.8-6.8); NEUTROPHILS % (AUTO) 74 % (42-75)
[2017-04-08] MEDS: FUROSEMIDE 40 MG/4 ML IV SCH ×2 (07:45→15:32)
[2017-04-08] MEDS: THIAMINE 100MG TABLET PO SCH (07:46)
[2017-04-08] MEDS: POTASSIUM CHLORIDE 20 MEQ PACKET PO SCH (07:46)
[2017-04-08] MEDS: NICOTINE 21 MG/24 HR PATCH.TD24 TD SCH (07:46)
[2017-04-08] MEDS: MULTIVITAMIN 1 TABLET PO SCH (07:46)
[2017-04-08] MEDS: PROPRANOLOL 10 MG TABLET PO SCH ×3 (07:46→21:10)
[2017-04-08] MEDS: FOLIC ACID 1 MG TABLET PO SCH (07:46)
[2017-04-08] MEDS: PANTOPRAZOLE 40 MG IV IV SCH (07:47)
[2017-04-08] MEDS: ASPIRIN 81 MG TABLET EC PO SCH (09:00)
[2017-04-08] MEDS: POTASSIUM CHLORIDE 20 MEQ TAB.ER.PRT PO SCH (15:31)
[2017-04-08] MEDS: ENOXAPARIN 40 MG/0.4 ML SQ SCH (17:06)
[2017-04-08 18:06] LABS: CLOSTRIDIUM DIFFICILE ANTIGEN NEGATIVE; CLOSTRIDIUM DIFFICILE TOXIN NEGATIVE (Negative)
[2017-04-08] MEDS: ATORVASTATIN 20 MG TABLET PO SCH (21:11)
[2017-04-09] MEDS: ALBUTEROL/IPRATROPIUM 2.5MG/0.5MG, 3 ML NPPB SCH ×6 (02:30→23:00)
[2017-04-09 04:00] VITALS: BP 110/66
[2017-04-09 04:31] LABS: MEAN CORPUSCULAR HEMOGLOBIN 37.9 pg (27.5-34.5); MEAN CORPUSCULAR HGB CONC 34.3 g/dL (33.2-36.2); MEAN CORPUSCULAR VOLUME 110.5 fL (81-97); MEAN PLATELET VOLUME 9.3 fL (7.4-10.4); PLATELET COUNT 293 x10^3/uL (130-400); RED BLOOD COUNT 2.55 x10^6/uL (4.38-5.82)
[2017-04-09 04:32] LABS: BASOPHILS # (AUTO) 0.03 x10^3/uL (0-0.1); BASOPHILS % (AUTO) 0 % (0-1); EOSINOPHILS # (AUTO) 0.13 x10^3/uL (0-0.4); EOSINOPHILS % (AUTO) 2 % (1-7); LYMPHOCYTES # (AUTO) 0.88 x10^3/uL (1-3.4); LYMPHOCYTES % (AUTO) 11 % (22-44); MD NO; MONOCYTES # (AUTO) 0.88 x10^3/uL (0.2-0.8); MONOCYTES % (AUTO) 11 % (2-9); NEUTROPHILS # (AUTO) 6.08 x10^3/uL (1.8-6.8); NEUTROPHILS % (AUTO) 76 % (42-75)
[2017-04-09 04:44] LABS: ALBUMIN 2.2 g/dL (3.4-5.0); ANION GAP 6 mmol/L (5-15); CALCIUM 8.1 mg/dL (8.5-10.1); CHLORIDE 101 mmol/L (98-107)
[2017-04-09 04:48] LABS: ALANINE AMINOTRANSFERASE 84 U/L (12-78); ALKALINE PHOSPHATASE 106 U/L (45-117); BILIRUBIN,TOTAL 0.5 mg/dL (0.2-1.0); CREATININE 0.66 mg/dL (0.7-1.3); TOTAL PROTEIN 6.2 g/dL (6.4-8.2)
[2017-04-09] MEDS: AMPICILLIN/SULBACTAM 3 GM in SODIUM CHLORIDE 0.9% 100 ML IV SCH ×4 (05:42→23:50)
[2017-04-09] MEDS: ASPIRIN 81 MG TABLET CHEW PO SCH (08:45)
[2017-04-09] MEDS: PANTOPRAZOLE 40 MG IV IV SCH (08:45)
[2017-04-09] MEDS: FUROSEMIDE 40 MG/4 ML IV SCH ×2 (08:45→16:45)
[2017-04-09] MEDS: MULTIVITAMIN 1 TABLET PO SCH (08:46)
[2017-04-09] MEDS: POTASSIUM CHLORIDE 20 MEQ TAB.ER.PRT PO SCH ×2 (08:46→16:45)
[2017-04-09] MEDS: FOLIC ACID 1 MG TABLET PO SCH (08:46)
[2017-04-09] MEDS: NICOTINE 21 MG/24 HR PATCH.TD24 TD SCH (08:46)
[2017-04-09] MEDS: THIAMINE 100MG TABLET PO SCH (08:46)
[2017-04-09] MEDS: PROPRANOLOL 10 MG TABLET PO SCH ×3 (08:46→21:23)
[2017-04-09] MEDS: SCOPOLAMINE PATCH, 1.5MG PATCH.TD72 TD SCH (10:38)
[2017-04-09] MEDS: MIDAZOLAM HCL 50 MG in SODIUM CHLORIDE 0.9% 240 ML IV PRN ×2 (15:27→21:56)
[2017-04-09] MEDS: FENTANYL PF 100 MCG/2ML IVPush PRN ×2 (16:45→19:28)
[2017-04-09] MEDS: ENOXAPARIN 40 MG/0.4 ML SQ SCH (17:44)
[2017-04-09] MEDS: ATORVASTATIN 20 MG TABLET PO SCH (21:23)
[2017-04-10] MEDS: ALBUTEROL/IPRATROPIUM 2.5MG/0.5MG, 3 ML NPPB SCH ×2 (03:00→07:06)
[2017-04-10 04:00] VITALS: BP 96/64
[2017-04-10] MEDS: MIDAZOLAM HCL 50 MG in SODIUM CHLORIDE 0.9% 240 ML IV PRN (04:02)
[2017-04-10 04:43] LABS: MEAN CORPUSCULAR HEMOGLOBIN 36.8 pg (27.5-34.5); MEAN CORPUSCULAR HGB CONC 33.3 g/dL (33.2-36.2); MEAN CORPUSCULAR VOLUME 110.3 fL (81-97); MEAN PLATELET VOLUME 9.1 fL (7.4-10.4); PLATELET COUNT 371 x10^3/uL (130-400); RED BLOOD COUNT 2.58 x10^6/uL (4.38-5.82); RED CELL DISTRIBUTION WIDTH 16.3 % (9.4-14.8)
[2017-04-10] MEDS: AMPICILLIN/SULBACTAM 3 GM in SODIUM CHLORIDE 0.9% 100 ML IV SCH ×4 (05:35→23:23)
[2017-04-10 05:53] LABS: BASOPHILS # (AUTO) 0.05 x10^3/uL (0-0.1); BASOPHILS % (AUTO) 1 % (0-1); EOSINOPHILS # (AUTO) 0.13 x10^3/uL (0-0.4); EOSINOPHILS % (AUTO) 2 % (1-7); LYMPHOCYTES # (AUTO) 0.89 x10^3/uL (1-3.4); LYMPHOCYTES % (AUTO) 10 % (22-44); MD SCAN; MONOCYTES # (AUTO) 1.18 x10^3/uL (0.2-0.8); MONOCYTES % (AUTO) 14 % (2-9); NEUTROPHILS # (AUTO) 6.38 x10^3/uL (1.8-6.8); NEUTROPHILS % (AUTO) 74 % (42-75)
[2017-04-10] MEDS: POTASSIUM CHLORIDE 20 MEQ TAB.ER.PRT PO SCH (08:17)
[2017-04-10] MEDS: MULTIVITAMIN 1 TABLET PO SCH (08:17)
[2017-04-10] MEDS: PROPRANOLOL 10 MG TABLET PO SCH ×3 (08:17→20:01)
[2017-04-10] MEDS: ASPIRIN 81 MG TABLET CHEW PO SCH (08:17)
[2017-04-10] MEDS: FOLIC ACID 1 MG TABLET PO SCH (08:18)
[2017-04-10] MEDS: NICOTINE 21 MG/24 HR PATCH.TD24 TD SCH (08:18)
[2017-04-10] MEDS: FUROSEMIDE 40 MG/4 ML IV SCH (08:18)
[2017-04-10] MEDS: PANTOPRAZOLE 40 MG IV IV SCH (08:18)
[2017-04-10] MEDS: THIAMINE 100MG TABLET PO SCH (08:18)
[2017-04-10] MEDS: DIAZEPAM 5 MG/ML, 10ML VIAL IV PRN ×2 (13:26→20:02)
[2017-04-10] MEDS: ENOXAPARIN 40 MG/0.4 ML SQ SCH (17:31)
[2017-04-10] MEDS: ATORVASTATIN 20 MG TABLET PO SCH (20:01)
[2017-04-11] MEDS: DIAZEPAM 5 MG/ML, 10ML VIAL IV PRN (02:05)
[2017-04-11 03:00] VITALS: BP 102/64
[2017-04-11 04:22] LABS: MEAN CORPUSCULAR HEMOGLOBIN 36.9 pg (27.5-34.5); MEAN CORPUSCULAR HGB CONC 33.8 g/dL (33.2-36.2); MEAN CORPUSCULAR VOLUME 109.2 fL (81-97); MEAN PLATELET VOLUME 8.9 fL (7.4-10.4); PLATELET COUNT 424 x10^3/uL (130-400); RED BLOOD COUNT 2.76 x10^6/uL (4.38-5.82); RED CELL DISTRIBUTION WIDTH 16.4 % (9.4-14.8)
[2017-04-11] MEDS: AMPICILLIN/SULBACTAM 3 GM in SODIUM CHLORIDE 0.9% 100 ML IV SCH ×3 (04:58→17:28)
[2017-04-11 05:41] LABS: BASOPHILS # (AUTO) 0.06 x10^3/uL (0-0.1); BASOPHILS % (AUTO) 1 % (0-1); EOSINOPHILS # (AUTO) 0.15 x10^3/uL (0-0.4); EOSINOPHILS % (AUTO) 1 % (1-7); LYMPHOCYTES # (AUTO) 1.27 x10^3/uL (1-3.4); LYMPHOCYTES % (AUTO) 12 % (22-44); MD SCAN; MONOCYTES # (AUTO) 1.11 x10^3/uL (0.2-0.8); MONOCYTES % (AUTO) 10 % (2-9); NEUTROPHILS # (AUTO) 8.07 x10^3/uL (1.8-6.8); NEUTROPHILS % (AUTO) 76 % (42-75)
[2017-04-11] MEDS ORDERED: ALBUTEROL/IPRATROPIUM 2.5MG/0.5MG, 3 ML NPPB SCH (07:00)
[2017-04-11] MEDS: FOLIC ACID 1 MG TABLET PO SCH (08:51)
[2017-04-11] MEDS: POTASSIUM CHLORIDE 20 MEQ TAB.ER.PRT PO SCH (08:51)
[2017-04-11] MEDS: ASPIRIN 81 MG TABLET CHEW PO SCH (08:52)
[2017-04-11] MEDS: MULTIVITAMIN 1 TABLET PO SCH (08:52)
[2017-04-11] MEDS: FUROSEMIDE 40 MG/4 ML IV SCH (08:52)
[2017-04-11] MEDS: PROPRANOLOL 10 MG TABLET PO SCH ×3 (08:52→20:39)
[2017-04-11] MEDS: THIAMINE 100MG TABLET PO SCH (08:52)
[2017-04-11] MEDS: NICOTINE 21 MG/24 HR PATCH.TD24 TD SCH (08:52)
[2017-04-11] MEDS: PANTOPRAZOLE 40 MG IV IV SCH (08:52)
[2017-04-11] MEDS: QUETIAPINE 25MG TABLET PO SCH ×2 (12:23→20:40)
[2017-04-11] MEDS: ENOXAPARIN 40 MG/0.4 ML SQ SCH (17:30)
[2017-04-11] MEDS: ATORVASTATIN 20 MG TABLET PO SCH (20:39)
[2017-04-12] MEDS: AMPICILLIN/SULBACTAM 3 GM in SODIUM CHLORIDE 0.9% 100 ML IV SCH ×4 (00:07→21:50)
[2017-04-12 04:00] VITALS: BP 106/67
[2017-04-12 04:33] LABS: BASOPHILS # (AUTO) 0.02 x10^3/uL (0-0.1); BASOPHILS % (AUTO) 0 % (0-1); EOSINOPHILS # (AUTO) 0.23 x10^3/uL (0-0.4); EOSINOPHILS % (AUTO) 2 % (1-7); LYMPHOCYTES # (AUTO) 1.42 x10^3/uL (1-3.4); LYMPHOCYTES % (AUTO) 13 % (22-44); MD NO; MEAN CORPUSCULAR HEMOGLOBIN 36.5 pg (27.5-34.5); MEAN CORPUSCULAR HGB CONC 33.3 g/dL (33.2-36.2); MEAN CORPUSCULAR VOLUME 109.8 fL (81-97); MEAN PLATELET VOLUME 9.2 fL (7.4-10.4); MONOCYTES # (AUTO) 1.07 x10^3/uL (0.2-0.8); MONOCYTES % (AUTO) 10 % (2-9); NEUTROPHILS # (AUTO) 8.33 x10^3/uL (1.8-6.8); NEUTROPHILS % (AUTO) 75 % (42-75); PLATELET COUNT 481 x10^3/uL (130-400); RED BLOOD COUNT 2.91 x10^6/uL (4.38-5.82); RED CELL DISTRIBUTION WIDTH 16.1 % (9.4-14.8)
[2017-04-12 07:33] LABS: ALBUMIN 2.5 g/dL (3.4-5.0); ANION GAP 9 mmol/L (5-15); CALCIUM 9.1 mg/dL (8.5-10.1); CHLORIDE 101 mmol/L (98-107)
[2017-04-12 07:36] LABS: ALKALINE PHOSPHATASE 111 U/L (45-117); BILIRUBIN,TOTAL 0.5 mg/dL (0.2-1.0); CREATININE 0.63 mg/dL (0.7-1.3); TOTAL PROTEIN 7.1 g/dL (6.4-8.2)
[2017-04-12 07:43] LABS: ALANINE AMINOTRANSFERASE 226 U/L (12-78)
[2017-04-12] MEDS: MULTIVITAMIN 1 TABLET PO SCH (07:59)
[2017-04-12] MEDS: QUETIAPINE 25MG TABLET PO SCH (07:59)
[2017-04-12] MEDS: THIAMINE 100MG TABLET PO SCH (07:59)
[2017-04-12] MEDS: POTASSIUM CHLORIDE 20 MEQ TAB.ER.PRT PO SCH (08:00)
[2017-04-12] MEDS: PANTOPRAZOLE 40 MG IV IV SCH (08:00)
[2017-04-12] MEDS: ASPIRIN 81 MG TABLET CHEW PO SCH (08:00)
[2017-04-12] MEDS: PROPRANOLOL 10 MG TABLET PO SCH ×3 (08:00→21:49)
[2017-04-12] MEDS: FOLIC ACID 1 MG TABLET PO SCH (08:00)
[2017-04-12] MEDS: NICOTINE 21 MG/24 HR PATCH.TD24 TD SCH (08:00)
[2017-04-12] MEDS: FUROSEMIDE 40 MG/4 ML IV SCH (08:00)
[2017-04-12] MEDS: SCOPOLAMINE PATCH, 1.5MG PATCH.TD72 TD SCH (08:01)
[2017-04-12 16:00] VITALS: BP 102/68
[2017-04-12] MEDS: ENOXAPARIN 40 MG/0.4 ML SQ SCH (18:30)
[2017-04-12 18:40] VITALS: BP 110/72
[2017-04-12] MEDS: ATORVASTATIN 20 MG TABLET PO SCH (21:49)
[2017-04-13 01:58] VITALS: BP 106/69
[2017-04-13] MEDS: AMPICILLIN/SULBACTAM 3 GM in SODIUM CHLORIDE 0.9% 100 ML IV SCH ×4 (04:38→22:03)
[2017-04-13 05:14] LABS: BASOPHILS # (AUTO) 0.11 x10^3/uL (0-0.1); BASOPHILS % (AUTO) 1 % (0-1); EOSINOPHILS % (AUTO) 2 % (1-7); LYMPHOCYTES # (AUTO) 1.52 x10^3/uL (1-3.4); LYMPHOCYTES % (AUTO) 14 % (22-44); MD NO; MEAN CORPUSCULAR HEMOGLOBIN 36.4 pg (27.5-34.5); MEAN CORPUSCULAR HGB CONC 33.3 g/dL (33.2-36.2); MEAN CORPUSCULAR VOLUME 109.3 fL (81-97); MEAN PLATELET VOLUME 8.9 fL (7.4-10.4); MONOCYTES # (AUTO) 1.11 x10^3/uL (0.2-0.8); MONOCYTES % (AUTO) 10 % (2-9); NEUTROPHILS # (AUTO) 8.34 x10^3/uL (1.8-6.8); NEUTROPHILS % (AUTO) 74 % (42-75); PLATELET COUNT 527 x10^3/uL (130-400); RED BLOOD COUNT 3.09 x10^6/uL (4.38-5.82); RED CELL DISTRIBUTION WIDTH 15.4 % (9.4-14.8)
[2017-04-13 08:07] VITALS: BP 125/79
[2017-04-13] MEDS: MULTIVITAMIN 1 TABLET PO SCH (09:19)
[2017-04-13] MEDS: FOLIC ACID 1 MG TABLET PO SCH (09:19)
[2017-04-13] MEDS: THIAMINE 100MG TABLET PO SCH (09:19)
[2017-04-13] MEDS: PROPRANOLOL 10 MG TABLET PO SCH ×3 (09:19→22:03)
[2017-04-13] MEDS: NICOTINE 21 MG/24 HR PATCH.TD24 TD SCH (09:20)
[2017-04-13] MEDS: ASPIRIN 81 MG TABLET CHEW PO SCH (09:20)
[2017-04-13 13:20] VITALS: BP 117/76
[2017-04-13] MEDS: ENOXAPARIN 40 MG/0.4 ML SQ SCH (18:19)
[2017-04-13] MEDS ORDERED: ALBUTEROL/IPRATROPIUM 2.5MG/0.5MG, 3 ML NPPB PRN (18:30)
[2017-04-13 18:50] VITALS: BP 102/63
[2017-04-13] MEDS: ATORVASTATIN 20 MG TABLET PO SCH (22:03)
[2017-04-14 02:15] VITALS: BP 110/68
[2017-04-14 05:25] LABS: BASOPHILS # (AUTO) 0.09 x10^3/uL (0-0.1); BASOPHILS % (AUTO) 1 % (0-1); EOSINOPHILS # (AUTO) 0.22 x10^3/uL (0-0.4); EOSINOPHILS % (AUTO) 2 % (1-7); LYMPHOCYTES # (AUTO) 1.74 x10^3/uL (1-3.4); LYMPHOCYTES % (AUTO) 19 % (22-44); MD NO; MEAN CORPUSCULAR HGB CONC 33.3 g/dL (33.2-36.2); MEAN CORPUSCULAR VOLUME 108.1 fL (81-97); MEAN PLATELET VOLUME 8.6 fL (7.4-10.4); MONOCYTES # (AUTO) 0.96 x10^3/uL (0.2-0.8); MONOCYTES % (AUTO) 10 % (2-9); NEUTROPHILS # (AUTO) 6.21 x10^3/uL (1.8-6.8); NEUTROPHILS % (AUTO) 67 % (42-75); PLATELET COUNT 504 x10^3/uL (130-400); RED BLOOD COUNT 2.92 x10^6/uL (4.38-5.82); RED CELL DISTRIBUTION WIDTH 15.7 % (9.4-14.8)
[2017-04-14] MEDS: AMPICILLIN/SULBACTAM 3 GM in SODIUM CHLORIDE 0.9% 100 ML IV SCH ×4 (05:32→23:42)
[2017-04-14 05:34] LABS: ALBUMIN 2.5 g/dL (3.4-5.0); ANION GAP 6 mmol/L (5-15); CALCIUM 9.2 mg/dL (8.5-10.1); CHLORIDE 103 mmol/L (98-107)
[2017-04-14 05:38] LABS: ALANINE AMINOTRANSFERASE 248 U/L (12-78); ALKALINE PHOSPHATASE 101 U/L (45-117); BILIRUBIN,TOTAL 0.7 mg/dL (0.2-1.0); CREATININE 0.65 mg/dL (0.7-1.3); TOTAL PROTEIN 6.7 g/dL (6.4-8.2)
[2017-04-14 08:35] VITALS: BP 128/79
[2017-04-14] MEDS: PROPRANOLOL 10 MG TABLET PO SCH ×3 (08:40→22:26)
[2017-04-14] MEDS: THIAMINE 100MG TABLET PO SCH (08:41)
[2017-04-14] MEDS: MULTIVITAMIN 1 TABLET PO SCH (08:41)
[2017-04-14] MEDS: FOLIC ACID 1 MG TABLET PO SCH (08:41)
[2017-04-14] MEDS: ASPIRIN 81 MG TABLET CHEW PO SCH (08:41)
[2017-04-14] MEDS: NICOTINE 21 MG/24 HR PATCH.TD24 TD SCH (08:43)
[2017-04-14 14:27] VITALS: BP 100/69
[2017-04-14] MEDS: ENOXAPARIN 40 MG/0.4 ML SQ SCH (17:20)
[2017-04-14 19:24] VITALS: BP 128/73
[2017-04-14] MEDS: ATORVASTATIN 20 MG TABLET PO SCH (22:26)
[2017-04-15 00:38] VITALS: BP 126/72
[2017-04-15] MEDS: AMPICILLIN/SULBACTAM 3 GM in SODIUM CHLORIDE 0.9% 100 ML IV SCH ×3 (05:23→16:54)
[2017-04-15 07:24] VITALS: BP 114/69
[2017-04-15] MEDS: THIAMINE 100MG TABLET PO SCH (10:32)
[2017-04-15] MEDS: ASPIRIN 81 MG TABLET CHEW PO SCH (10:33)
[2017-04-15] MEDS: FOLIC ACID 1 MG TABLET PO SCH (10:33)
[2017-04-15] MEDS: MULTIVITAMIN 1 TABLET PO SCH (10:33)
[2017-04-15] MEDS: NICOTINE 21 MG/24 HR PATCH.TD24 TD SCH (10:33)
[2017-04-15] MEDS: PROPRANOLOL 10 MG TABLET PO SCH ×3 (10:48→21:07)
[2017-04-15 13:50] VITALS: BP 123/71
[2017-04-15] MEDS: ENOXAPARIN 40 MG/0.4 ML SQ SCH (16:55)
[2017-04-15 19:34] VITALS: BP 127/76
[2017-04-15] MEDS: ATORVASTATIN 20 MG TABLET PO SCH (21:07)
[2017-04-16 02:19] VITALS: BP 137/80
[2017-04-16 05:45] LABS: CHLORIDE 104 mmol/L (98-107)
[2017-04-16 05:54] LABS: ALANINE AMINOTRANSFERASE 196 U/L (12-78); ALBUMIN 2.5 g/dL (3.4-5.0); ALKALINE PHOSPHATASE 95 U/L (45-117); ANION GAP 6 mmol/L (5-15); BILIRUBIN,TOTAL 0.7 mg/dL (0.2-1.0); CALCIUM 8.8 mg/dL (8.5-10.1); CREATININE 0.62 mg/dL (0.7-1.3); TOTAL PROTEIN 6.5 g/dL (6.4-8.2)
[2017-04-16 07:46] VITALS: BP 131/78
[2017-04-16] MEDS: ASPIRIN 81 MG TABLET CHEW PO SCH (09:45)
[2017-04-16] MEDS: THIAMINE 100MG TABLET PO SCH (09:46)
[2017-04-16] MEDS: MULTIVITAMIN 1 TABLET PO SCH (09:46)
[2017-04-16] MEDS: PROPRANOLOL 10 MG TABLET PO SCH ×3 (09:46→23:07)
[2017-04-16] MEDS: FOLIC ACID 1 MG TABLET PO SCH (09:46)
[2017-04-16] MEDS: NICOTINE 21 MG/24 HR PATCH.TD24 TD SCH (09:47)
[2017-04-16 14:02] VITALS: BP 118/69
[2017-04-16] MEDS: ENOXAPARIN 40 MG/0.4 ML SQ SCH (17:51)
[2017-04-16 19:33] VITALS: BP 115/70
[2017-04-16] MEDS: ATORVASTATIN 20 MG TABLET PO SCH (21:37)
[2017-04-16 23:00] VITALS: BP 126/74
[2017-04-17 01:12] VITALS: BP 127/73
[2017-04-17 07:41] VITALS: BP 138/76
[2017-04-17] MEDS: THIAMINE 100MG TABLET PO SCH (09:32)
[2017-04-17] MEDS: PROPRANOLOL 10 MG TABLET PO SCH ×3 (09:32→21:03)
[2017-04-17] MEDS: FOLIC ACID 1 MG TABLET PO SCH (09:32)
[2017-04-17] MEDS: NICOTINE 21 MG/24 HR PATCH.TD24 TD SCH (09:33)
[2017-04-17] MEDS: MULTIVITAMIN 1 TABLET PO SCH (09:33)
[2017-04-17] MEDS: ASPIRIN 81 MG TABLET CHEW PO SCH (09:33)
[2017-04-17 13:56] VITALS: BP 108/70
[2017-04-17] MEDS ORDERED: FOLI-17 PO (15:20)
[2017-04-17] MEDS ORDERED: ATOR20TA9 PO (15:20)
[2017-04-17] MEDS ORDERED: NICO-487 TD (15:20)
[2017-04-17] MEDS ORDERED: PROP10TA PO (15:20)
[2017-04-17] MEDS ORDERED: THIA100T6 PO (15:20)
[2017-04-17] MEDS: ENOXAPARIN 40 MG/0.4 ML SQ SCH (16:51)
[2017-04-17 20:21] VITALS: BP 125/77
[2017-04-17] MEDS: ATORVASTATIN 20 MG TABLET PO SCH (21:03)
[2017-04-18 02:20] VITALS: BP 108/58
[2017-04-18 07:53] VITALS: BP 124/77
[2017-04-18] MEDS: FOLIC ACID 1 MG TABLET PO SCH (09:21)
[2017-04-18] MEDS: MULTIVITAMIN 1 TABLET PO SCH (09:21)
[2017-04-18] MEDS: ASPIRIN 81 MG TABLET CHEW PO SCH (09:21)
[2017-04-18] MEDS: THIAMINE 100MG TABLET PO SCH (09:21)
[2017-04-18] MEDS: NICOTINE 21 MG/24 HR PATCH.TD24 TD SCH (09:22)
[2017-04-18] MEDS: PROPRANOLOL 10 MG TABLET PO SCH (09:22)
== END 2017-04-18 12:37 | disposition home or self-care (01) | DRG 981 ==
LOC: ED 17:27 → EDIP 17:28 → ED 17:39 → 4EST 20:16 → CCU 04-02 22:40 → 3NE 04-12 13:00
PROVIDERS: ADMIT Hospitalist; ATTEND Family Medicine
PROC: 0B9F8ZZ Drainage of Right Lower Lung Lobe, Via Natural or Artificial Opening Endoscopic (ICD-10-PCS; principal; 2017-04-02)
PROC: 0BH17EZ Insertion of Endotracheal Airway into Trachea, Via Natural or Artificial Opening (ICD-10-PCS; 2017-04-02)
PROC: 0B9D8ZZ Drainage of Right Middle Lung Lobe, Via Natural or Artificial Opening Endoscopic (ICD-10-PCS; 2017-04-02)
PROC: 5A1955Z Respiratory Ventilation, Greater than 96 Consecutive Hours (ICD-10-PCS; 2017-04-02)
DX: F10.231 Alcohol dependence with withdrawal delirium (principal); J69.0 Pneumonitis due to inhalation of food and vomit; J96.00 Acute respiratory failure, unspecified whether with hypoxia or hypercapnia; Z99.11 Dependence on respirator [ventilator] status; E87.2 Acidosis; D69.6 Thrombocytopenia, unspecified; E83.39 Other disorders of phosphorus metabolism; E83.42 Hypomagnesemia; K70.10 Alcoholic hepatitis without ascites; I48.0 Paroxysmal atrial fibrillation; G90.9 Disorder of the autonomic nervous system, unspecified; I50.9 Heart failure, unspecified; D53.9 Nutritional anemia, unspecified; E87.6 Hypokalemia; K21.9 Gastro-esophageal reflux disease without esophagitis; K76.0 Fatty (change of) liver, not elsewhere classified; Z51.5 Encounter for palliative care; Z87.891 Personal history of nicotine dependence; Z90.49 Acquired absence of other specified parts of digestive tract; Z79.82 Long term (current) use of aspirin; Z79.899 Other long term (current) drug therapy
CPT/HCPCS: 36415; 36600; 71010; 71045; 71275; 76700; 80048; 80053; 80061; 80307; 82010; 82140; 82272; 82607; 82746; 82803; 82962; 83605; 83735; 84100; 84439; 84443; 84478; 84484; 85025; 85379; 85610; 87040; 87070; 87081; 87205; 87324; 93005; 93306; 93880; 94002; 94003; 94150; 94640; 96361; 96365; 96366; J0295; J1650; J1940; J2250; J2704; J3010; J3360; J3411; J3475; J3490; J7620; Q9967; C9113; G0479; J2060; J7030; J7040; J7050

== ENCOUNTER 2018-09-05 12:37 | Outpatient (CLI) | payer MEDICARE, OTHER ==
[~2018-09-05 12:37] MED LIST changes: +ATOR20TA37 PO; +FOLI-17 PO; +NICO-487 TD; +PROP10TA16 PO; +THIA100T67 PO
[2018-09-05] MEDS ORDERED: ATOR20TA37 PO (13:14)
== END 2018-09-05 23:59 | disposition home or self-care (01) ==
LOC: STAR 12:37
PROVIDERS: ATTEND Urology
DX: Z01.818 Encounter for other preprocedural examination (principal); C61 Malignant neoplasm of prostate
CPT/HCPCS: 93005

== ENCOUNTER 2018-09-10 08:27 | Inpatient (IN) | payer MEDICARE, OTHER ==
[2018-09-05 13:05] VITALS: BP 124/76
[~2018-09-10] VITALS: Ht 182.9 cm; Wt 76.4 kg
[2018-09-10] MEDS ORDERED: DIAZEPAM 5 MG TABLET PO ONE (09:00)
[2018-09-10] MEDS ORDERED: GABAPENTIN 300 MG CAPSULE PO ONE (09:00)
[2018-09-10] MEDS ORDERED: ACETAMINOPHEN 500 MG TABLET PO ONE (09:00)
[2018-09-10] MEDS ORDERED: LACTATED RINGERS 1,000 ML IV SCH (09:00)
[2018-09-10] MEDS ORDERED: OxyconTIN ER 10 MG TAB.ER PO ONE (09:00)
[2018-09-10] MEDS ORDERED: FENTANYL PF 250 MCG/5ML ONE (09:08)
[2018-09-10] MEDS ORDERED: MIDAZOLAM 1 MG/ML, 2ML ONE (09:08)
[2018-09-10 09:49] LABS: BASOPHILS # (AUTO) 0.02 x10^3/uL (0-0.1); BASOPHILS % (AUTO) 0 % (0-1); EOSINOPHILS % (AUTO) 2 % (1-7); LYMPHOCYTES # (AUTO) 1.12 x10^3/uL (1-3.4); LYMPHOCYTES % (AUTO) 21 % (22-44); MD NO; MEAN CORPUSCULAR HEMOGLOBIN 36.1 pg (27.5-34.5); MEAN CORPUSCULAR HGB CONC 33.7 g/dL (33.2-36.2); MEAN CORPUSCULAR VOLUME 107.1 fL (81-97); MEAN PLATELET VOLUME 8.3 fL (7.4-10.4); MONOCYTES # (AUTO) 0.72 x10^3/uL (0.2-0.8); MONOCYTES % (AUTO) 14 % (2-9); NEUTROPHILS # (AUTO) 3.31 x10^3/uL (1.8-6.8); NEUTROPHILS % (AUTO) 63 % (42-75); PLATELET COUNT 204 x10^3/uL (130-400); RED BLOOD COUNT 3.86 x10^6/uL (4.38-5.82); RED CELL DISTRIBUTION WIDTH 14.6 % (9.4-14.8)
[2018-09-10 10:02] LABS: ALANINE AMINOTRANSFERASE 60 U/L (12-78); ALBUMIN 3.9 g/dL (3.4-5.0); ANION GAP 7 mmol/L (5-15); CALCIUM 8.7 mg/dL (8.5-10.1); CHLORIDE 108 mmol/L (98-107)
[2018-09-10 10:05] LABS: ALKALINE PHOSPHATASE 68 U/L (45-117); BILIRUBIN,TOTAL 1.3 mg/dL (0.2-1.0); CREATININE 0.85 mg/dL (0.7-1.3); TOTAL PROTEIN 6.9 g/dL (6.4-8.2)
[2018-09-10] MEDS ORDERED: BUPIVACAINE/PF 0.25% ONE ×3 (10:29→11:48)
[2018-09-10] MEDS ORDERED: EPINEPHRINE 1 MG/ML, 1ML ONE ×2 (10:29→11:48)
[2018-09-10] MEDS ORDERED: OPIUM/BELLADONNA SUPP.RECT 16.2-60 MG ONE (10:30)
[2018-09-10 10:49] LABS: CULTURE INDICATED? YES; MICROSCOPIC INDICATED
[2018-09-10] MEDS ORDERED: METOPROLOL 1 MG/ML, 5ML ONE (11:30)
[2018-09-10] MEDS ORDERED: hydrALAzine 20 MG/ML, 1ML ONE (11:51)
[2018-09-10] MEDS ORDERED: PROMETHAZINE 25 MG/ML, 1ML IV PRN (12:00)
[2018-09-10] MEDS ORDERED: ONDANSETRON 2MG/ML, 2ML IV PRN ×2 (12:00→17:00)
[2018-09-10] MEDS ORDERED: hydrALAzine 20 MG/ML, 1ML IV PRN (12:00)
[2018-09-10] MEDS ORDERED: FENTANYL PF 100 MCG/2ML IV PRN (12:00)
[2018-09-10] MEDS ORDERED: OXYcodone 5 MG/5 ML ORAL.SOL UDC PO PRN (12:00)
[2018-09-10] MEDS ORDERED: HYDROmorphone 2 MG/ML, 1ML IVPush PRN (12:00)
[2018-09-10] MEDS ORDERED: ACETAMINOPHEN 325 MG TABLET PO PRN (12:00)
[2018-09-10] MEDS ORDERED: MIDAZOLAM 1 MG/ML, 2ML IV PRN (12:00)
[2018-09-10] MEDS ORDERED: MEPERIDINE/PF 25MG/0.5ML IVPush PRN (12:00)
[2018-09-10] MEDS ORDERED: ALBUTEROL/IPRATROPIUM 2.5MG/0.5MG, 3 ML NPPB PRN (12:00)
[2018-09-10] MEDS ORDERED: METOPROLOL 1 MG/ML, 5ML IV PRN (12:00)
[2018-09-10] MEDS ORDERED: ONDANSETRON 2MG/ML, 2ML ONE (13:26)
[2018-09-10] MEDS ORDERED: CEFAZOLIN 1,000 MG ONE (13:26)
[2018-09-10] MEDS ORDERED: PROPOFOL 10 MG/ML, 20ML ONE (13:26)
[2018-09-10] MEDS ORDERED: GLYCOPYRROLATE 0.2MG/1ML, 5ML ONE (13:26)
[2018-09-10] MEDS ORDERED: ROCURONIUM 10MG/ML,5ML ONE (13:26)
[2018-09-10] MEDS ORDERED: DEXAMETHASONE 4 MG/ML, 1ML ONE (13:26)
[2018-09-10] MEDS ORDERED: NEOSTIGMINE 1 MG/ML, 10ML ONE (13:26)
[2018-09-10] MEDS ORDERED: THROMBIN 5,000 UNIT VIAL TP ONE (14:31)
[2018-09-10] MEDS ORDERED: morphine SULFATE 10 MG/ML, 1ML IV PRN (17:00)
[2018-09-10] MEDS ORDERED: TEMAZEPAM 15 MG CAPSULE PO PRN (17:00)
[2018-09-10] MEDS ORDERED: HYDROcodone/APAP 5/325 TABLET PO PRN (17:00)
[2018-09-10] MEDS: CEFAZOLIN PMX 1GM/50ML 50 ML IVPB SCH (18:47)
[2018-09-10 20:18] VITALS: BP 117/76
[2018-09-10] MEDS ORDERED: ATORVASTATIN 20 MG TABLET PO SCH (21:00)
[2018-09-10] MEDS: D5%-0.45NACL+KCL 20MEQ 1,000 ML IV SCH (23:19)
[2018-09-11 00:16] VITALS: BP 109/68
[2018-09-11] MEDS: CEFAZOLIN PMX 1GM/50ML 50 ML IVPB SCH (03:00)
[2018-09-11 04:12] VITALS: BP 100/64
[2018-09-11 05:54] LABS: ANION GAP 4 mmol/L (5-15); CALCIUM 8.1 mg/dL (8.5-10.1); CHLORIDE 109 mmol/L (98-107)
[2018-09-11 05:55] LABS: CREATININE 0.89 mg/dL (0.7-1.3)
[2018-09-11] MEDS ORDERED: OMEPRAZOLE 20 MG CAPSULE.DR PO SCH (06:00)
[2018-09-11 07:47] VITALS: BP 105/56
[2018-09-11] MEDS ORDERED: ENOXAPARIN 40 MG/0.4 ML SQ SCH (08:00)
[2018-09-11] MEDS: D5%-0.45NACL+KCL 20MEQ 1,000 ML IV SCH (08:13)
[2018-09-11] MEDS ORDERED: HYDR-3240 PO (10:16)
== END 2018-09-11 13:15 | disposition home or self-care (01) | DRG 708 ==
LOC: OUT 08:27 → 4NOR 16:22 → OUT 22:11 → 4NOR 22:16 → DCLOUNGE 09-11 13:07
PROVIDERS: ADMIT Urology; ATTEND Urology
PROC: 0VB34ZZ Excision of Bilateral Seminal Vesicles, Percutaneous Endoscopic Approach (ICD-10-PCS; 2018-09-10)
PROC: 8E0W4CZ Robotic Assisted Procedure of Trunk Region, Percutaneous Endoscopic Approach (ICD-10-PCS; 2018-09-10)
PROC: 03HY32Z Insertion of Monitoring Device into Upper Artery, Percutaneous Approach (ICD-10-PCS; 2018-09-10)
PROC: 3E0T3BZ Introduction of Anesthetic Agent into Peripheral Nerves and Plexi, Percutaneous Approach (ICD-10-PCS; 2018-09-10)
PROC: 0VT04ZZ Resection of Prostate, Percutaneous Endoscopic Approach (ICD-10-PCS; principal; 2018-09-10 11:30)
DX: C61 Malignant neoplasm of prostate (principal); K21.9 Gastro-esophageal reflux disease without esophagitis; E78.5 Hyperlipidemia, unspecified; I48.91 Unspecified atrial fibrillation; I50.9 Heart failure, unspecified
CPT/HCPCS: 36415; 80048; 80053; 81001; 85014; 85018; 85025; 86850; 86900; 87086; 88309; C1729; G0378; J0171; J0690; J1100; J1650; J2250; J2405; J2704; J2710; J3010; J3490; C1760; J0360; J3480; J7120

== ENCOUNTER 2019-12-08 14:35 | Inpatient (IN) | payer MEDICARE, OTHER ==
[~2019-12-08] VITALS: Ht 182.9 cm; Wt 72.5 kg
[~2019-12-08 14:35] MED LIST changes: +HYDR-3240 PO
--- NOTE | 2019-12-08 14:55 | NUR ---
FIRST CONTACT WITH PT. PT C/O WEAKNESS SINCE SATURDAY. PT HAD GLF AT HOME ON SATURDAY. PT DENIES CP/SOB/PAIN. PT'S GIVING 81MG ASA QD FOR A FEW DAYS FOR AN UNKNOWN REASON. PT'S AOX4. RESPS EVEN AND UNLABORED. A-FIB ON TRACTOR CRANE OPERATOR RATE 130-140'S AT THIS TIME. EKG DONE AT BEDSIDE. ALL MONITORS IN PLACE. CALL LIGHT WITHIN REACH. PA AT BEDSIDE EVALUATING AT THIS TIME.
[2019-12-08] MEDS ORDERED: ASPIRIN 81 MG TABLET CHEW PO ONE (15:00)
[2019-12-08] MEDS ORDERED: DILTIAZEM 5 MG/ML, 5ML IVPush ONE (15:00)
[2019-12-08] MEDS ORDERED: SODIUM CHLORIDE FLUSH 10ML SYR IVF ONE (15:00)
[2019-12-08] MEDS ORDERED: ASPIRIN 81 MG TABLET CHEW ONE (15:02)
[2019-12-08] MEDS ORDERED: DILTIAZEM 5 MG/ML, 5ML ONE (15:03)
--- NOTE | 2019-12-08 15:09 | NUR ---
PT MEDICATED PER EMAR. PT TOLERATED WELL.
--- NOTE | 2019-12-08 15:20 | NUR ---
URINAL AT BEDSIDE. PT AWARE OF URINE SAMPLE.
[2019-12-08 15:25] LABS: ALBUMIN 2.9 g/dL (3.4-5.0); CALCIUM 8.5 mg/dL (8.5-10.1); CHLORIDE 92 mmol/L (98-107)
[2019-12-08 15:31] LABS: ANION GAP 21 mmol/L (5-15)
[2019-12-08 15:32] LABS: ALANINE AMINOTRANSFERASE 101 U/L (12-78); ALKALINE PHOSPHATASE 103 U/L (45-117); BILIRUBIN,TOTAL 4.4 mg/dL (0.2-1.0); CREATININE 1.36 mg/dL (0.7-1.3); TROPONIN I < 0.015 ng/mL (0.000-0.045)
[2019-12-08 15:40] LABS: MD YES; MEAN CORPUSCULAR HEMOGLOBIN 37.4 pg (27.5-34.5); MEAN CORPUSCULAR HGB CONC 33.5 g/dL (33.2-36.2); MEAN CORPUSCULAR VOLUME 111.7 fL (81-97); MEAN PLATELET VOLUME 9.1 fL (7.4-10.4); PLATELET COUNT 100 x10^3/uL (130-400); RED BLOOD COUNT 2.77 x10^6/uL (4.38-5.82); RED CELL DISTRIBUTION WIDTH 18.8 % (9.4-14.8)
[2019-12-08 15:44] LABS: BAND#(MANUAL) 0.25 x10^3/uL; BANDS%(MANUAL) 6 % (0-7); EOS#(MANUAL) 0.04 x10^3/uL (0.0-0.4); EOS% (MANUAL) 1 % (1-7); LYMPH#(MANUAL) 0.45 x10^3/uL (1-3.4); LYMPHS% (MANUAL) 11 % (22-44); MONOS#(MANUAL) 0.29 x10^3/uL (0.3-2.7); MONOS% (MANUAL) 7 % (2-9); SEG#(MANUAL) 3.08 x10^3/uL (1.8-6.8); SEGS% (MANUAL) 75 % (42-75)
[2019-12-08 15:47] LABS: ANISOCYTOSIS 1+
[2019-12-08 15:49] LABS: OVALOCYTES 1+; STOMATOCYTES 1+
[2019-12-08 15:50] LABS: POLYCHROMASIA 1+; TOXIC GRAN 1+
[2019-12-08 15:51] LABS: <PLATELET ESTIMATE> DECREASED; <PLT MORPHOLOGY> NORMAL PLT MORPH
[2019-12-08] MEDS ORDERED: OMNIPAQUE 350 MG/ML, 100ML BOTTLE ONE (16:05)
--- NOTE | 2019-12-08 16:05 | NUR ---
pt back to room from imaging. pt's aox4. resps even and unlabored. all monitors in place. call light within reach.
--- NOTE | 2019-12-08 16:43 | NUR ---
pt's straight cath'd using sterile technique. urine collected and ua sent.
--- NOTE | 2019-12-08 16:45 | NUR ---
pt is poor historian. unable to obtain reconcile med at this time.
[2019-12-08 16:53] LABS: MICROSCOPIC NOT IND
[2019-12-08] MEDS ORDERED: MAGNESIUM SULFATE PMX 2GM/50ML 50 ML ONE (16:58)
[2019-12-08] MEDS ORDERED: MAGNESIUM SULFATE PMX 2GM/50ML 50 ML IV ONE (17:00)
[2019-12-08] MEDS ORDERED: POTASSIUM CHLORIDE 40 MEQ in SODIUM CHLORIDE 0.9% 500 ML IV ONE (17:00)
--- NOTE | 2019-12-08 17:03 | NUR ---
's phone number [phone]
--- NOTE | 2019-12-08 17:03 | NUR ---
Marcella osborn in [facility] - 12/08/19 at 1847 by GLO josephine's phone number [phone]
[2019-12-08] MEDS ORDERED: DILTIAZEM 125 MG in SODIUM CHLORIDE 0.9% 100 ML IV SCH (17:24)
[2019-12-08] MEDS ORDERED: DILTIAZEM 5 MG/ML, 5ML IV ONE (17:30)
--- NOTE | 2019-12-08 17:40 | NUR ---
US AT BEDSIDE AT THIS TIME.
--- NOTE | 2019-12-08 17:40 | NUR ---
MAG INFUSING AT THIS TIME. PT TOLERATED WELL.
--- NOTE | 2019-12-08 18:31 | NUR ---
pt resting in [place]. resps even and unlabored. pt removed all monitors. mag is still infusing at this time. call light within reach.
--- NOTE | 2019-12-08 18:41 | NUR ---
report given to patric cortez. all questions answered.
[2019-12-08 20:00] VITALS: BP 135/80
[2019-12-08] MEDS ORDERED: LORazepam 2 MG/ML, 1ML IV PRN ×3 (20:30)
[2019-12-08] MEDS ORDERED: THIAMINE 200 MG in DEXTROSE 5% 50 ML IVPB ONE (20:30)
[2019-12-08] MEDS ORDERED: ALUMINUM/MAG/SIMETHICONE 30 ML UDC PO PRN (20:30)
[2019-12-08] MEDS ORDERED: PROMETHAZINE 25 MG/ML, 1ML IM PRN (20:30)
[2019-12-08] MEDS ORDERED: FOLIC ACID 1 MG TABLET PO ONE (21:00)
[2019-12-08] MEDS: MAGNESIUM CHLORIDE 64 MG TABLET.DR PO SCH (21:29)
[2019-12-08] MEDS: DILTIAZEM 125 MG in SODIUM CHLORIDE 0.9% 100 ML IV SCH (22:38)
[2019-12-08] MEDS: LORazepam 2 MG/ML, 1ML IV PRN (23:33)
[2019-12-08] MEDS: POTASSIUM CHLORIDE 40 MEQ, MVI ADULT 10 ML, FOLIC ACID 1 MG, MAGNESIUM SULFATE 2 GM in ... IV SCH (23:34)
[2019-12-09] VITALS: BP 142/90
[2019-12-09] MEDS: LORazepam 2 MG/ML, 1ML IV PRN ×3 (03:53→21:04)
[2019-12-09 05:21] LABS: ANION GAP 9 mmol/L (5-15); CALCIUM 8.5 mg/dL (8.5-10.1); CHLORIDE 97 mmol/L (98-107); MEAN CORPUSCULAR HEMOGLOBIN 37.2 pg (27.5-34.5); MEAN CORPUSCULAR HGB CONC 33.2 g/dL (33.2-36.2); MEAN CORPUSCULAR VOLUME 111.9 fL (81-97); MEAN PLATELET VOLUME 8.7 fL (7.4-10.4); PLATELET COUNT 88 x10^3/uL (130-400); RED BLOOD COUNT 2.42 x10^6/uL (4.38-5.82); RED CELL DISTRIBUTION WIDTH 18.3 % (9.4-14.8)
[2019-12-09 06:10] LABS: MD YES
[2019-12-09 06:13] LABS: ANISOCYTOSIS 1+; BAND#(MANUAL) 0.07 x10^3/uL; BANDS%(MANUAL) 2 % (0-7); EOS#(MANUAL) 0.04 x10^3/uL (0.0-0.4); EOS% (MANUAL) 1 % (1-7); LYMPH#(MANUAL) 1.08 x10^3/uL (1-3.4); LYMPHS% (MANUAL) 30 % (22-44); MONOS#(MANUAL) 0.22 x10^3/uL (0.3-2.7); MONOS% (MANUAL) 6 % (2-9); MYELOCYTES# (MANUAL) 0.04 x10^3/uL (0-0); MYELOCYTES% (MANUAL) 1 % (0-0); OVALOCYTES 1+; POLYCHROMASIA 1+; SEG#(MANUAL) 2.16 x10^3/uL (1.8-6.8); SEGS% (MANUAL) 60 % (42-75); STOMATOCYTES 1+
[2019-12-09 06:14] LABS: <PLATELET ESTIMATE> DECREASED; LARGE PLATELETS 1+; TEAR DROPS 1+
[2019-12-09 06:15] LABS: TARGET CELLS 1+; TOXIC GRAN 1+
[2019-12-09 08:40] VITALS: BP 123/85
[2019-12-09] MEDS: MULTIVITAMINS/MINERALS TABLET PO SCH (09:00)
[2019-12-09] MEDS: MAGNESIUM CHLORIDE 64 MG TABLET.DR PO SCH ×3 (09:00→20:15)
[2019-12-09] MEDS: DILTIAZEM 125 MG in SODIUM CHLORIDE 0.9% 100 ML IV SCH ×2 (10:31→21:36)
[2019-12-09 13:31] VITALS: BP 103/55
[2019-12-09 19:59] VITALS: BP 110/78
[2019-12-09] MEDS: POTASSIUM CHLORIDE 40 MEQ, MVI ADULT 10 ML, FOLIC ACID 1 MG, MAGNESIUM SULFATE 2 GM in ... IV SCH (21:36)
[2019-12-10 02:17] VITALS: BP 113/70
[2019-12-10 07:10] VITALS: BP 102/65
[2019-12-10] MEDS: MAGNESIUM CHLORIDE 64 MG TABLET.DR PO SCH ×3 (09:00→21:00)
[2019-12-10] MEDS: MULTIVITAMINS/MINERALS TABLET PO SCH (09:00)
[2019-12-10] MEDS: DILTIAZEM 125 MG in SODIUM CHLORIDE 0.9% 100 ML IV SCH (10:00)
[2019-12-10] MEDS ORDERED: HEPARIN 5,000 UNITS/ML, 1ML IV ONE (11:00)
[2019-12-10] MEDS: THIAMINE 100 MG/ML, 2ML IM SCH (12:09)
[2019-12-10] MEDS: HEPARIN 25,000 UNITS/250ML PMX 250 ML IV PRN (12:34)
[2019-12-10 13:30] VITALS: BP 108/61
[2019-12-10] MEDS: LORazepam 2 MG/ML, 1ML IV PRN ×2 (18:34→23:25)
[2019-12-10] MEDS: HEPARIN 5,000 UNITS/ML, 1ML IV PRN (19:40)
[2019-12-10 19:53] VITALS: BP 101/66
[2019-12-10] MEDS: POTASSIUM CHLORIDE 40 MEQ, MVI ADULT 10 ML, FOLIC ACID 1 MG, MAGNESIUM SULFATE 2 GM in ... IV SCH (22:55)
[2019-12-11 00:59] VITALS: BP 109/76
[2019-12-11] MEDS: DILTIAZEM 125 MG in SODIUM CHLORIDE 0.9% 100 ML IV SCH ×2 (01:07→14:00)
[2019-12-11] MEDS: HEPARIN 5,000 UNITS/ML, 1ML IV PRN (02:11)
[2019-12-11 04:23] LABS: MEAN CORPUSCULAR HEMOGLOBIN 37.9 pg (27.5-34.5); MEAN CORPUSCULAR HGB CONC 33.4 g/dL (33.2-36.2); MEAN CORPUSCULAR VOLUME 113.6 fL (81-97); MEAN PLATELET VOLUME 8.6 fL (7.4-10.4); PLATELET COUNT 93 x10^3/uL (130-400); RED BLOOD COUNT 2.43 x10^6/uL (4.38-5.82)
[2019-12-11 04:25] LABS: ANISOCYTOSIS 1+; BASOPHILS # (AUTO) 0.01 x10^3/uL (0-0.1); BASOPHILS % (AUTO) 0 % (0-1); EOSINOPHILS # (AUTO) 0.04 x10^3/uL (0-0.4); EOSINOPHILS % (AUTO) 1 % (1-7); LYMPHOCYTES # (AUTO) 1.16 x10^3/uL (1-3.4); LYMPHOCYTES % (AUTO) 22 % (22-44); MD MORPH REVIEW ONLY; MONOCYTES % (AUTO) 10 % (2-9); NEUTROPHILS # (AUTO) 3.46 x10^3/uL (1.8-6.8); NEUTROPHILS % (AUTO) 67 % (42-75)
[2019-12-11 04:26] LABS: TARGET CELLS 1+
[2019-12-11 04:27] LABS: POLYCHROMASIA 1+; TEAR DROPS 1+
[2019-12-11 04:28] LABS: <PLATELET ESTIMATE> DECREASED; <PLT MORPHOLOGY> NORMAL PLT MORPH; TOXIC GRAN 1+
[2019-12-11 08:54] VITALS: BP 120/70
[2019-12-11] MEDS: MAGNESIUM CHLORIDE 64 MG TABLET.DR PO SCH ×2 (09:49→18:37)
[2019-12-11] MEDS: MULTIVITAMINS/MINERALS TABLET PO SCH (09:49)
[2019-12-11 12:31] VITALS: BP 120/83
[2019-12-11] MEDS: THIAMINE 100 MG/ML, 2ML IM SCH (14:00)
[2019-12-11 15:52] LABS: ALANINE AMINOTRANSFERASE 99 U/L (12-78); ALBUMIN 2.4 g/dL (3.4-5.0); ANION GAP 5 mmol/L (5-15); CALCIUM 8.4 mg/dL (8.5-10.1); CHLORIDE 107 mmol/L (98-107); CREATININE 0.64 mg/dL (0.7-1.3)
[2019-12-11 15:54] LABS: ALKALINE PHOSPHATASE 90 U/L (45-117); BILIRUBIN,TOTAL 2.9 mg/dL (0.2-1.0); TOTAL PROTEIN 5.3 g/dL (6.4-8.2)
[2019-12-11] MEDS ORDERED: POTASSIUM CHLORIDE 20 MEQ TAB.ER.PRT PO ONE (16:30)
[2019-12-11 21:00] VITALS: BP 107/81
[2019-12-11 22:05] VITALS: BP 107/81
[2019-12-11] MEDS: POTASSIUM CHLORIDE 40 MEQ, MVI ADULT 10 ML, FOLIC ACID 1 MG, MAGNESIUM SULFATE 2 GM in ... IV SCH (23:08)
[2019-12-12 03:21] VITALS: BP 135/84
[2019-12-12] MEDS: DILTIAZEM 125 MG in SODIUM CHLORIDE 0.9% 100 ML IV SCH (03:33)
[2019-12-12] MEDS: HEPARIN 25,000 UNITS/250ML PMX 250 ML IV PRN ×2 (05:22→22:32)
[2019-12-12 07:26] VITALS: BP 132/86
[2019-12-12 09:38] LABS: ALBUMIN 2.5 g/dL (3.4-5.0); ANION GAP 4 mmol/L (5-15); CALCIUM 8.3 mg/dL (8.5-10.1); CHLORIDE 111 mmol/L (98-107); CREATININE 0.57 mg/dL (0.7-1.3)
[2019-12-12 09:46] LABS: MEAN CORPUSCULAR HGB CONC 32.1 g/dL (33.2-36.2); MEAN CORPUSCULAR VOLUME 115.2 fL (81-97); PLATELET COUNT 117 x10^3/uL (130-400); RED BLOOD COUNT 2.28 x10^6/uL (4.38-5.82); RED CELL DISTRIBUTION WIDTH 19.5 % (9.4-14.8)
[2019-12-12 10:03] LABS: MD YES
[2019-12-12 10:05] LABS: BAND#(MANUAL) 0.17 x10^3/uL; BANDS%(MANUAL) 3 % (0-7); LYMPH#(MANUAL) 1.97 x10^3/uL (1-3.4); LYMPHS% (MANUAL) 34 % (22-44); MONOS#(MANUAL) 0.58 x10^3/uL (0.3-2.7); MONOS% (MANUAL) 10 % (2-9); NRBC % (MANUAL) 2 % (0-1); SEG#(MANUAL) 3.07 x10^3/uL (1.8-6.8); SEGS% (MANUAL) 53 % (42-75)
[2019-12-12 10:06] LABS: <PLATELET ESTIMATE> DECREASED; <PLT MORPHOLOGY> NORMAL PLT MORPH; ANISOCYTOSIS 1+; POLYCHROMASIA 1+; STOMATOCYTES 1+; TARGET CELLS 1+; TEAR DROPS 1+
[2019-12-12] MEDS: DILTIAZEM 60 MG TABLET PO SCH ×3 (10:12→21:46)
[2019-12-12] MEDS: MULTIVITS,STRESS FORMULA 1 TABLET PO SCH (10:13)
[2019-12-12] MEDS: MULTIVITAMINS/MINERALS TABLET PO SCH (10:13)
[2019-12-12] MEDS: ZINC SULFATE 220 MG CAPSULE PO SCH (10:13)
[2019-12-12] MEDS: CHOLECALCIFEROL 5,000u TAB PO SCH (10:13)
[2019-12-12] MEDS ORDERED: MAGNESIUM SULFATE PMX 2GM/50ML 50 ML IV ONE (13:00)
[2019-12-12] MEDS ORDERED: POTASSIUM CHLORIDE 20 MEQ in SODIUM CHLORIDE 0.9% 250 ML IV ONE (13:00)
[2019-12-12 13:30] VITALS: BP 109/76
[2019-12-12] MEDS: ASCORBIC ACID 500 MG TABLET PO SCH (17:00)
[2019-12-12 20:16] VITALS: BP 111/74
[2019-12-12] MEDS: POTASSIUM CHLORIDE 40 MEQ, MVI ADULT 10 ML, FOLIC ACID 1 MG, MAGNESIUM SULFATE 2 GM in ... IV SCH (21:46)
[2019-12-13 01:07] VITALS: BP 111/76
[2019-12-13 05:11] LABS: MEAN CORPUSCULAR HEMOGLOBIN 36.6 pg (27.5-34.5); MEAN CORPUSCULAR HGB CONC 32.2 g/dL (33.2-36.2); MEAN PLATELET VOLUME 8.1 fL (7.4-10.4); PLATELET COUNT 162 x10^3/uL (130-400); RED BLOOD COUNT 2.45 x10^6/uL (4.38-5.82); RED CELL DISTRIBUTION WIDTH 19.3 % (9.4-14.8)
[2019-12-13 05:18] LABS: ALBUMIN 2.7 g/dL (3.4-5.0); ANION GAP 4 mmol/L (5-15); CALCIUM 8.1 mg/dL (8.5-10.1); CHLORIDE 110 mmol/L (98-107)
[2019-12-13 05:21] LABS: CREATININE 0.63 mg/dL (0.7-1.3)
[2019-12-13 06:03] LABS: BASOPHILS # (AUTO) 0.01 x10^3/uL (0-0.1); BASOPHILS % (AUTO) 0 % (0-1); EOSINOPHILS # (AUTO) 0.08 x10^3/uL (0-0.4); EOSINOPHILS % (AUTO) 1 % (1-7); LYMPHOCYTES # (AUTO) 1.36 x10^3/uL (1-3.4); LYMPHOCYTES % (AUTO) 21 % (22-44); MD SCAN; MONOCYTES # (AUTO) 0.55 x10^3/uL (0.2-0.8); MONOCYTES % (AUTO) 9 % (2-9); NEUTROPHILS # (AUTO) 4.46 x10^3/uL (1.8-6.8); NEUTROPHILS % (AUTO) 69 % (42-75)
[2019-12-13 07:39] VITALS: BP 145/82
[2019-12-13] MEDS: ASCORBIC ACID 500 MG TABLET PO SCH ×2 (08:00→16:16)
[2019-12-13] MEDS: MULTIVITAMINS/MINERALS TABLET PO SCH (09:00)
[2019-12-13] MEDS: CHOLECALCIFEROL 5,000u TAB PO SCH (09:00)
[2019-12-13] MEDS: DILTIAZEM 60 MG TABLET PO SCH ×3 (09:00→21:00)
[2019-12-13] MEDS: MULTIVITS,STRESS FORMULA 1 TABLET PO SCH (09:00)
[2019-12-13] MEDS: ZINC SULFATE 220 MG CAPSULE PO SCH (09:00)
[2019-12-13 13:20] VITALS: BP 132/84
[2019-12-13] MEDS ORDERED: POTASSIUM PHOSPHATE 44 MEQ in SODIUM CHLORIDE 0.9% 500 ML IV ONE (14:30)
[2019-12-13] MEDS ORDERED: MAGNESIUM SULFATE PMX 2GM/50ML 50 ML IV ONE (14:30)
[2019-12-13] MEDS: HEPARIN 25,000 UNITS/250ML PMX 250 ML IV PRN (16:06)
[2019-12-13 19:40] VITALS: BP 126/75
[2019-12-13] MEDS: POTASSIUM CHLORIDE 40 MEQ, MVI ADULT 10 ML, FOLIC ACID 1 MG, MAGNESIUM SULFATE 2 GM in ... IV SCH (21:39)
[2019-12-13 23:26] VITALS: BP 123/85
[2019-12-14 06:55] VITALS: BP 107/79
[2019-12-14 07:52] LABS: ALBUMIN 2.3 g/dL (3.4-5.0); ANION GAP 5 mmol/L (5-15); CALCIUM 7.6 mg/dL (8.5-10.1); CHLORIDE 111 mmol/L (98-107); CREATININE 0.58 mg/dL (0.7-1.3)
[2019-12-14] MEDS: ASCORBIC ACID 500 MG TABLET PO SCH ×3 (08:00→17:00)
[2019-12-14] MEDS: MULTIVITAMINS/MINERALS TABLET PO SCH (09:00)
[2019-12-14] MEDS: CHOLECALCIFEROL 5,000u TAB PO SCH (09:00)
[2019-12-14] MEDS: ZINC SULFATE 220 MG CAPSULE PO SCH (09:00)
[2019-12-14] MEDS: DILTIAZEM 60 MG TABLET PO SCH (09:00)
[2019-12-14] MEDS: HEPARIN 25,000 UNITS/250ML PMX 250 ML IV PRN (09:00)
[2019-12-14] MEDS: MULTIVITS,STRESS FORMULA 1 TABLET PO SCH (09:00)
[2019-12-14] MEDS ORDERED: ACETAMINOPHEN 325 MG TABLET ONE (12:39)
[2019-12-14] MEDS ORDERED: ACETAMINOPHEN 325 MG TABLET PO PRN (13:00)
[2019-12-14 13:19] VITALS: BP 100/63
[2019-12-14 18:54] VITALS: BP 95/53
[2019-12-14] MEDS: DILTIAZEM 120 MG CAP.ER.12H PO SCH (21:00)
[2019-12-14] MEDS: POTASSIUM CHLORIDE 40 MEQ, MVI ADULT 10 ML, FOLIC ACID 1 MG, MAGNESIUM SULFATE 2 GM in ... IV SCH (21:12)
[2019-12-15] VITALS (10 sets, daily range): BP systolic 96–128; BP diastolic 62–81
[2019-12-15] MEDS: HEPARIN 25,000 UNITS/250ML PMX 250 ML IV PRN (05:38)
[2019-12-15] MEDS: MULTIVITS,STRESS FORMULA 1 TABLET PO SCH (08:53)
[2019-12-15] MEDS: DILTIAZEM 120 MG CAP.ER.12H PO SCH (08:53)
[2019-12-15] MEDS: MULTIVITAMINS/MINERALS TABLET PO SCH (08:53)
[2019-12-15] MEDS: CHOLECALCIFEROL 5,000u TAB PO SCH (08:54)
[2019-12-15] MEDS: ZINC SULFATE 220 MG CAPSULE PO SCH (08:54)
[2019-12-15] MEDS: ASCORBIC ACID 500 MG TABLET PO SCH ×2 (08:57→16:01)
[2019-12-15] MEDS ORDERED: APIXABAN 5 MG TABLET PO SCH ×2 (10:00)
[2019-12-15] MEDS ORDERED: APIX5TAB PO (10:53)
[2019-12-15] MEDS ORDERED: ASCO500T9 PO (10:53)
[2019-12-15] MEDS ORDERED: CHLO25CA9 PO (10:53)
[2019-12-15] MEDS ORDERED: ONDA4TAB7 PO (10:53)
[2019-12-15] MEDS ORDERED: CHOL500045 PO (10:53)
[2019-12-15] MEDS ORDERED: DILT120C11 PO (10:53)
--- NOTE | 2019-12-15 15:15 | NUR ---
BRYCE DURHAM - Fall Risk Medication(s) present and receiving anticoagulants.
[2019-12-22] MEDS ORDERED: APIXABAN 5 MG TABLET PO SCH (09:00)
== END 2019-12-15 17:35 | DRG 896 ==
LOC: ED 16:24 → EDIP 18:11 → 5SO 18:52
PROVIDERS: ADMIT Internal Medicine; ATTEND Family Medicine
DX: F10.231 Alcohol dependence with withdrawal delirium (principal); G93.41 Metabolic encephalopathy; S32.019A Unspecified fracture of first lumbar vertebra, initial encounter for closed fracture; S22.43XA Multiple fractures of ribs, bilateral, initial encounter for closed fracture; D68.69 Other thrombophilia; F17.203 Nicotine dependence unspecified, with withdrawal; I48.0 Paroxysmal atrial fibrillation; K70.10 Alcoholic hepatitis without ascites; D53.9 Nutritional anemia, unspecified; E87.6 Hypokalemia; E83.42 Hypomagnesemia; K76.0 Fatty (change of) liver, not elsewhere classified; D69.59 Other secondary thrombocytopenia; R29.6 Repeated falls; R53.1 Weakness; F17.200 Nicotine dependence, unspecified, uncomplicated; E83.51 Hypocalcemia; K82.8 Other specified diseases of gallbladder; M75.101 Unspecified rotator cuff tear or rupture of right shoulder, not specified as traumatic; R32 Unspecified urinary incontinence; W07.XXXA Fall from chair, initial encounter; Y92.524 Gas station as the place of occurrence of the external cause; Y93.89 Activity, other specified; Y99.0 Civilian activity done for income or pay; Z85.46 Personal history of malignant neoplasm of prostate; Z90.79 Acquired absence of other genital organ(s); Z91.14 Patient's other noncompliance with medication regimen; Z91.19 Patient's noncompliance with other medical treatment and regimen; F32.9 Major depressive disorder, single episode, unspecified; K21.9 Gastro-esophageal reflux disease without esophagitis; Z80.41 Family history of malignant neoplasm of ovary; Y90.9 Presence of alcohol in blood, level not specified
CPT/HCPCS: 36415; 70450; 71045; 74177; 76700; 80048; 80053; 80069; 80307; 81003; 82140; 83735; 84100; 84443; 84484; 85025; 85520; 93005; 93306; 96374; 96375; 99285; G0378; J1644; J3411; J3475; J3480; Q9967; J2060; J7040; J7050